=== PATIENT | female | born 1960 | race Caucasian/White ===

== ENCOUNTER 2017-03-22 17:33 | Emergency (ER) | payer OTHER ==
[~2017-03-22] VITALS: Ht 147.3 cm; Wt 94.1 kg
[~2017-03-22 17:33] MED LIST: ASPI81TA21 PO; CARV12.52 PO; HYDR12.56 PO; IBUP-103 PO; LISI40TA PO; SIMV40TA4 PO
[2017-03-22 17:38] VITALS: TEMP 36.7; Ht 147.3 cm; Wt 94.1 kg
--- NOTE | 2017-03-22 18:22 | EMERGENCY ROOM VISIT NOTE ---
ED Visit Note First contact with patient: 18:02 CHIEF COMPLAINT: Left hand Burn HISTORY OF PRESENT ILLNESS: This 57-year-old female patient presents to the emergency department after they sustained a burn injury to the dorsal aspect of the left hand. This occurred at work almost 2-1/2 hours ago. The patient complains of swelling and pain over the dorsal aspect of the left hand rated as 7/10. Pain is worse with movement and pressure. Sensation is still present. There is no blistering. No other injury sustained. Tetanus shot is up to date. The patient states that several months but at hand of hot grease up above her work station and when she moved it the grease splashed on the dorsal aspect of her left hand REVIEW OF SYSTEMS: A 6 system review of systems was completed with positives and pertinent negatives listed in the HPI. ALLERGIES: Penicillins, tramadol MEDICATIONS: Aspirin, Zocor, Coreg, lisinopril, hydrochlorothiazide PMH: Hypertension, hyperlipidemia SOCIAL HISTORY: The patient does not smoke. She is employed at [employer] PHYSICAL EXAM: Vital Signs reviewed, see Nurse's notes, vital signs stable. GENERAL: This is a 57-year-old female, awake, alert, well appearing, no acute distress HEENT: Normocephalic, atraumatic. No carbonaceous sputum or singed nasal hair. Oropharynx without edema or erythema. NECK: No stridor LUNGS: Clear to ausculation. No wheezes or rales. CARDIAC: Regular rate, normal rhythm MUSCULOSKELETAL: No gross deformity. SKIN: There is a partial thickness burn to the dorsal aspect of the left hand and is less than 0.5 % BSA. The burn is 9 circumferential. No signs of infection or foreign body. There is no blistering or skin sloughing. NEURO: No sensory or motor deficits noted over all dermatomes and myotomes tested. EMERGENCY DEPARTMENT COURSE AND DECISION MAKING: I examined the patient. The patient presented with an isolated first-degree burn as above. No signs of airway involvement or smoke inhalation. There is no critical body part involvement or burn severity to warrant burn center referral. ER Treatment: The wound was cleaned and dressed with bacitracin and nonstick dressing. She should follow-up with an employer proved Worker's Compensation doctor on Saturday She should return with worsening symptoms She declined pain medication. Discharge instructions reviewed. The patient was discharged home in stable condition. Problem List Medical Problems: (1) Coronary artery disease Permanent Comment: Moderate nonocclusive coronary disease per cath 2009 Status: Chronic (2) Dyslipidemia Status: Chronic (3) History of colonic polyps Status: Chronic (4) Hypertension Status: Chronic Surgical Problems: (1) Status post cardiac catheterization Status: Chronic Current/Historical Medications Scheduled Aspirin Enteric Coated (Ecotrin Or Generic), 81 MG PO QAM Carvedilol (Coreg), 12.5 MG PO BID Hydrochlorothiazide (Hctz), 12.5 MG PO DAILY Lisinopril (Prinivil), 40 MG PO DAILY Simvastatin (Zocor), 40 MG PO QAM Miscellaneous Medications Ibuprofen Tab (Advil), 400 MG PO Allergies Coded Allergies: Amoxicillin (Unverified Allergy, Severe, SHORTNESS OF BREATH, 08/01/16) Tramadol (Verified Allergy, Intermediate, SWEATY, CLAMMY, 08/01/16) Penicillins (Verified Allergy, Unknown, unknown, 08/01/16) Vital Signs Date Time Temp Pulse Resp B/P Pulse Ox O2 Delivery O2 Flow Rate FiO2 03/22/17 18:30 64 20 160/86 96 03/22/17 18:29 69 18 160/86 93 Room Air 03/22/17 17:38 36.7 70 18 164/87 94 Room Air Departure Information Impression Primary Impression: First degree burn of hand Additional Impression: Work related injury Dispostion Home / Self-Care Condition GOOD Referrals Imelda Zaomra M.D. (MEDICAL) (PCP) Forms HOME CARE DOCUMENTATION FORM, IMPORTANT VISIT INFORMATION, Work Instructions Return To Work: 3 days Patient Instructions ED Burn D , On License Of [facility] Additional Instructions Motrin 600 mg every 6-8 hours as needed for moderate pain Keep the wound clean and dry and change the dressing 1-2 times daily or as needed Follow up with an employer approved Worker's Compensation doctor on Saturday Return if any worsening symptoms Problem Qualifiers Primary Impression: First degree burn of hand Encounter type: initial encounter Laterality: left Qualified Codes: T23.102A - Burn of first degree of left hand, unspecified site, initial encounter
[2017-03-22 18:30] VITALS: BP 160/86; PULSE 64; O2SAT 96
== END 2017-03-22 18:30 | disposition home or self-care (01) ==
LOC: C.EDB 17:34 → C.EDD 18:30
DX: T23.102A Burn of first degree of left hand, unspecified site, initial encounter (principal); X12.XXXA Contact with other hot fluids, initial encounter; Y92.89 Other specified places as the place of occurrence of the external cause; Y99.0 Civilian activity done for income or pay; I10 Essential (primary) hypertension; E78.5 Hyperlipidemia, unspecified; I25.10 Atherosclerotic heart disease of native coronary artery without angina pectoris; Z98.61 Coronary angioplasty status; Z86.010 Personal history of colon polyps; Z79.82 Long term (current) use of aspirin; Z79.899 Other long term (current) drug therapy; Z88.0 Allergy status to penicillin; Z88.1 Allergy status to other antibiotic agents; Z88.6 Allergy status to analgesic agent; Z88.8 Allergy status to other drugs, medicaments and biological substances

== ENCOUNTER 2017-10-13 17:43 | Emergency (ER) | payer OTHER ==
[~2017-10-13] VITALS: Ht 149.9 cm; Wt 94.4 kg
[2017-10-13 17:51] VITALS: TEMP 36.6; Ht 149.9 cm; Wt 94.4 kg
--- NOTE | 2017-10-13 18:33 | DIAGNOSTIC IMAGING REPORT ---
RIGHT KNEE 3 VIEWS HISTORY: R anterior knee pain COMPARISON: None. FINDINGS: There is no fracture or dislocation. Soft tissues are unremarkable. No radiopaque foreign bodies. No significant knee effusion. Vascular calcifications are noted. Mild osteoarthritis of the medial and patellofemoral compartments. IMPRESSION: No fractures. Electronically signed by: Kody Moser M.D. 10/13/2017 6:31 PM Dictated Date/Time: 10/13/2017 6:31 PM
[2017-10-13 19:32] VITALS: BP 126/85; PULSE 80; O2SAT 95
--- NOTE | 2017-10-13 23:00 | EMERGENCY ROOM VISIT NOTE ---
History First contact with patient: 17:53 Chief Complaint: KNEEPAIN Stated Complaint: KNEE PAIN History of Present Illness The patient is a 57 year old female who presents to the Emergency Room with complaints of right anterior knee pain. The patient reports that she woke up this morning with significant discomfort, and a feeling like her knee was locked up. She does report a history of right knee arthroscopy over 5 years ago , and reports a history of osteoarthritis of bilateral knees. She had a cortisone injection in her left knee approximately [address] Palacios. The patient denies any recent injury to her right knee. She walks six block to/from work, and also stands on her feet for approximately 7 hours a day. The patient currently denies any pain extending into the right leg or thigh. She also denies back pain, paresthesias or numbness of the right lower extremity. Her pain is worsened with ambulation, and rates her discomfort a 9 out of 10. She has tried using BenGay, heat/cold and ibuprofen without relief. Review of Systems 10 system review was performed and was negative except for pertinent positives and negatives as indicated in history of present illness Past Medical/Surgical History Medical Problems: (1) Coronary artery disease (2) Dyslipidemia (3) History of colonic polyps (4) Hypertension Surgical Problems: (1) Status post cardiac catheterization Family History Cancer FATHER Heart disease MOTHER Social History Smoking Status: Current Some Day Smoker Alcohol Use: none Drug Use: none Marital Status: Occupation Status: retired Current/Historical Medications Scheduled Aspirin Enteric Coated (Ecotrin Or Generic), 81 MG PO QAM Carvedilol (Coreg), 12.5 MG PO BID Hydrochlorothiazide (Hctz), 12.5 MG PO DAILY Lisinopril (Prinivil), 40 MG PO DAILY Simvastatin (Zocor), 40 MG PO QAM Scheduled PRN Ibuprofen Tab (Advil), 400 MG PO DIRECTED PRN for Pain Physical Exam Vital Signs Date Time Temp Pulse Resp B/P (MAP) Pulse Ox O2 Delivery O2 Flow Rate FiO2 10/13/17 19:32 80 18 126/85 95 10/13/17 17:51 36.6 80 20 143/82 94 Room Air Physical Exam CONSTITUTIONAL: Morbidly obese female, alert and oriented X 3 with positive affect. Patient appears in mild to moderate distress. HEENT: Normocephalic, atraumatic. Pupils equal, round and reactive. NECK: Full active range of motion without discomfort. MUSCULOSKELETAL: Examination of the right knee does not show any obvious soft tissue edema, ecchymosis, erythema, joint effusion or increased warmth to palpation. She has generalized anterior discomfort to palpation with no focal posterior or lateral or posterior medial tenderness. No popliteal masses. Ligamentous exam is normal. Range of motion worsens her discomfort. Distal pulses are intact. INTEGUMENTARY: No rash or other significant dermatologic conditions noted. NEUROLOGIC: Right lower extremity is sensory intact. Medical Decision & Procedures ER Provider Diagnostic Interpretation: My interpretation of right knee x-rays shows mild degenerative changes of the medial and patellofemoral compartment. No other fractures, dislocation or obvious joint effusion. Radiologist report is as follows: RIGHT KNEE 3 VIEWS HISTORY: R anterior knee pain COMPARISON: None. FINDINGS: There is no fracture or dislocation. Soft tissues are unremarkable. No radiopaque foreign bodies. No significant knee effusion. Vascular calcifications are noted. Mild osteoarthritis of the medial and patellofemoral compartments. IMPRESSION: No fractures. ED Course Patient history and physical exam were performed. Nurse's notes were reviewed. Vital signs were reviewed and were normal. The patient initially refused any analgesics. X-rays of the right knee shows mild medial compartment and patellofemoral degenerative changes. The patient reports that she does have crutches and a cane at home. She refused a knee immobilizer, reporting that she likely has one of those at home as well. The patient was encouraged to continue alternating ice and heat for pain. She was encouraged to alternate ibuprofen and Tylenol as needed for additional pain relief, and limits weight- bearing until symptoms improve. I did encourage her to continue follow-up with Dr. Martin who performed her last right knee arthroscopy. She was advised that she would likely need a referral from her PCP. The patient was happy with plan of care, voiced understanding of all discharge instructions, and rated her discomfort a 5 out of 10 at the conclusion of my exam. Medical Decision Medication Reconcilliation Current Medication List: was personally reviewed by me Blood Pressure Screening Patient's blood pressure: Normal blood pressure Impression Primary Impression: Right anterior knee pain Departure Information Referrals Imelda Zamora M.D. (MEDICAL) (PCP) Patient Instructions My [facility]
== END 2017-10-13 19:32 | disposition home or self-care (01) ==
LOC: C.EDB 17:44 → C.EDD 19:32
DX: M25.561 Pain in right knee (principal); M17.0 Bilateral primary osteoarthritis of knee; I25.10 Atherosclerotic heart disease of native coronary artery without angina pectoris; E78.5 Hyperlipidemia, unspecified; I10 Essential (primary) hypertension; Z86.010 Personal history of colon polyps; Z80.9 Family history of malignant neoplasm, unspecified; Z82.49 Family history of ischemic heart disease and other diseases of the circulatory system; F17.210 Nicotine dependence, cigarettes, uncomplicated; Z79.899 Other long term (current) drug therapy

== ENCOUNTER 2018-04-13 14:52 | Emergency (ER) | payer OTHER ==
[~2018-04-13] VITALS: Ht 149.9 cm; Wt 96.5 kg
[~2018-04-13 14:52] MED LIST changes: -ASPI81TA21 PO; -CARV12.52 PO
[2018-04-13 15:00] VITALS: TEMP 36.7; Ht 149.9 cm; Wt 96.5 kg
[2018-04-13] MEDS ORDERED: KETOROLAC TROMETHAMINE 30 MG/ML VIAL IM STA (15:09)
--- NOTE | 2018-04-13 15:14 | EMERGENCY ROOM VISIT NOTE ---
History Report prepared by Clarence: Taj Melo Under the Supervision of: Dr. Nba Orr M.D. First contact with patient: 14:52 Chief Complaint: KNEEPAIN Stated Complaint: KNEE PAIN History of Present Illness The patient is a 58 year old female who presents to the Emergency Room with complaints of constant left knee pain that began in October. She rates her discomfort as a 9/10 in severity. The patient states she has had knee pain since October. She reports that she saw Dr. Martin, Orthopedics who performed an x-ray and found that there was "bone on bone". The patient states that she received Cortisone injections for her knee pain, which she states helped relieve her pain. She reports her pain has continued over the last few days. The patient states she has taken Ibuprofen for her symptoms without any relief. Source of History: patient Onset: October Position: knee (left) Symptom Intensity: 9/10 Timing: constant Modifying Factors (Relieving): ibuprofen, other (Cortisone injections) Review of Systems See HPI for pertinent positives and negatives. A total of ten systems were reviewed and were otherwise negative. Past Medical & Surgical Medical Problems: (1) Coronary artery disease (2) Dyslipidemia (3) History of colonic polyps (4) Hypertension Surgical Problems: (1) Status post cardiac catheterization Family History Cancer FATHER Heart disease MOTHER Social History Smoking Status: Current Every Day Smoker Alcohol Use: none Drug Use: none Marital Status: Occupation Status: retired Current/Historical Medications Scheduled Aspirin Enteric Coated (Ecotrin Or Generic), 81 MG PO QAM Carvedilol (Coreg), 12.5 MG PO BID Folic Acid (Folvite), 1 MG PO DAILY Hydrochlorothiazide (Hctz), 12.5 MG PO DAILY Lisinopril (Prinivil), 40 MG PO DAILY Methotrexate (Methotrexate), 2.5 MG PO WK Simvastatin (Zocor), 40 MG PO QAM Scheduled PRN Gabapentin (Neurontin), 1 CAP PO TID PRN for Pain Ibuprofen Tab (Advil), 400 MG PO UD PRN for Pain Allergies Coded Allergies: Amoxicillin (Verified Allergy, Severe, SHORTNESS OF BREATH, 10/13/17) Tramadol (Verified Allergy, Intermediate, SWEATY, CLAMMY, 10/13/17) Penicillins (Verified Allergy, Unknown, unknown, 10/13/17) Physical Exam Vital Signs Date Time Temp Pulse Resp B/P (MAP) Pulse Ox O2 Delivery O2 Flow Rate FiO2 04/13/18 16:16 78 20 138/80 97 04/13/18 15:00 36.7 70 20 140/81 96 Room Air Physical Exam Physical Exam GENERAL: She is oriented to person, place, and time. She appears well- developed and well-nourished. She does not appear distressed. ____ HENT: Exam performed. Head: Normocephalic and atraumatic. Right Ear: External ear normal. No mastoid tenderness. Left Ear: External ear normal. No mastoid tenderness. Mouth/Throat: The oropharynx is clear and moist. No trismus in the jaw. No dental abscesses or uvula swelling. No oropharyngeal exudate or tonsillar abscesses. ____ EYES: Conjunctivae and EOM are normal. Pupils are equal, round, and reactive to light. Right eye exhibits no discharge. Left eye exhibits no discharge. No scleral icterus. ____ NECK: Normal range of motion. Neck supple. No JVD present. No spinous process tenderness present. No carotid bruit present. No rigidity. No tracheal deviation and normal range of motion present. No Brudzinski's sign and no Kernig 's sign noted. ____ CV: Normal rate, regular rhythm, normal heart sounds and intact distal pulses. There is no peripheral edema. Palpable radial pulses bue. Palpable DP and PT pulses bilaterally. ____ PULM/CHEST: Effort normal and breath sounds normal. No respiratory distress. No stridor. She has no wheezes. She has no rales. Chest Wall: She exhibits no tenderness. ____ ABD: The abdomen is soft. Bowel sounds are normal. She has no distension. No mass is present. There is no tenderness. There is no rebound, no guarding, no Zelaya's sign and no tenderness at McBurney's point. Rovsig negative MUSC/SKEL: Normal range of motion. There is no peripheral edema, tenderness or deformity. Pain on palpation of left knee as well as left posterior thigh. No overlying erythema, edema, warmth, or effusion. LYMPH: No cervical adenopathy. ____ NEURO: She is alert and oriented to person, place, and time. She has normal strength. No cranial nerve deficit or sensory deficit. Coordination and gait normal. GCS eye subscore is 4. GCS verbal subscore is 5. GCS motor subscore is 6. Cerebellar tests wnl. ____ SKIN: Skin is warm and dry. She is not diaphoretic. ____ PSYCH: She has a normal mood and affect. Her behavior is normal. Judgment and thought content normal. ____ Medical Decision & Procedures ER Provider Diagnostic Interpretation: Radiology results as stated below per my review and radiologist interpretation: LEFT LOWER EXTREMITY VENOUS DOPPLER HISTORY: Left leg pain. COMPARISON STUDY: None. FINDINGS: There is normal compressibility, flow, and augmentation within the left lower extremity deep venous system. IMPRESSION: No DVT within the left lower extremity. Electronically signed by: Kody Moser M.D. 04/13/2018 3:50 PM Dictated Date/Time: 04/13/2018 3:50 PM LEFT KNEE 3 VIEWS HISTORY: chronic knee pain COMPARISON: None. FINDINGS: There is no fracture or dislocation. Small left knee effusion. Mild tricompartmental osteoarthritis. Vascular calcifications are noted. No radiopaque foreign bodies. IMPRESSION: 1. No fracture or dislocation within the left knee. 2. Small knee effusion. 3. Mild tricompartmental osteoarthritis. Electronically signed by: Kody Moser M.D. 04/13/2018 3:42 PM Dictated Date/Time: 04/13/2018 3:41 PM Medications Administered Medications (Trade) Dose Ordered Sig/Aydin Route Start Time Stop Time Status Last Admin Dose Admin Ketorolac Tromethamine (Toradol Inj) 15 mg NOW STAT IM 04/13/18 15:09 04/13/18 15:10 DC 04/13/18 15:17 15 MG ED Course 1504: The patient was evaluated in room B06. A complete history and physical exam was performed. 1509: Ordered Toradol Injection 15 mg IM. 1557: I discussed the patients case with Dr. Davidson, [facility]. He agrees the patient should be discharged and follow up with Dr. Martin. 1805: I reevaluated the patient. Her vital signs are stable. Her imaging is wnl. She states she cannot take Tylenol at home due to adverse reactions. She states Ibuprofen and Motrin have not been helping. She will be discharged with a prescription of Gabapentin and will follow up with orthopedics. DISCHARGE - Plan of care discussed with patient and questions answered. The patient was given both verbal and printed discharge instructions. The patient verbalized understanding and ability to comply. The patient is to seek outpatient follow up as noted in the discharge instructions. The patient verbalized understanding and ability to comply. The patient is discharged in stable condition. The patient was instructed to return for worsening symptoms. Medical Decision vital signs are stable. Her imaging is wnl. She states she cannot take Tylenol at home due to adverse reactions. She states Ibuprofen and Motrin have not been helping. She will be discharged with a prescription of Gabapentin and will follow up with orthopedics. DISCHARGE - Plan of care discussed with patient and questions answered. The patient was given both verbal and printed discharge instructions. The patient verbalized understanding and ability to comply. The patient is to seek outpatient follow up as noted in the discharge instructions. The patient verbalized understanding and ability to comply. The patient is discharged in stable condition. The patient was instructed to return for worsening symptoms. Medication Reconcilliation Current Medication List: was personally reviewed by me Blood Pressure Screening Patient's blood pressure: Elevated blood pressure Blood pressure disposition: Referred to PCP Consults Time Called: 2027 Consulting Physician: Dr. Davidson, [facility] Returned Call: [phone] I discussed the patients case with Dr. Davidson, [facility]. He agrees the patient should be discharged and follow up with Dr. Martin. Impression Primary Impression: Knee pain Scribe Attestation The scribe's documentation has been prepared under my direction and personally reviewed by me in its entirety. I confirm that the note above accurately reflects all work, treatment, procedures, and medical decision making performed by me. The chart was completed utilizing [employer] Speech voice recognition software. Grammatical errors, random word insertions, pronoun errors, and incomplete sentences are an occasional consequence of this system due to software limitations, ambient noise, and hardware issues. Any formal questions or concerns about the content, text, or information contained within the body of this dictation should be directly addressed to the physician for clarification. Departure Information Dispostion Home / Self-Care Prescriptions Gabapentin (Neurontin) 100 Mg Cap 1 CAP PO TID Y for Pain for 30 Days, #30 CAP 0 Refills Prov: Kirby, Nba ., M.D. 04/13/18 Referrals Imelda Zamora M.D. (MEDICAL) (PCP) Francesco Martin D.O. Forms HOME CARE DOCUMENTATION FORM, IMPORTANT VISIT INFORMATION Patient Instructions My [facility], Oste[facility] Additional Instructions Return to the emergency department if you develop increasing pain in her knee, swelling of any, redness around the injection site where your orthopedist injected cortisone, fevers, chills, or your symptoms worsen. Problem Qualifiers Primary Impression: Knee pain Chronicity: chronic Laterality: left Qualified Codes: M25.562 - Pain in left knee; G89.29 - Other chronic pain
--- NOTE | 2018-04-13 15:43 | DIAGNOSTIC IMAGING REPORT ---
LEFT KNEE 3 VIEWS HISTORY: chronic knee pain COMPARISON: None. FINDINGS: There is no fracture or dislocation. Small left knee effusion. Mild tricompartmental osteoarthritis. Vascular calcifications are noted. No radiopaque foreign bodies. IMPRESSION: 1. No fracture or dislocation within the left knee. 2. Small knee effusion. 3. Mild tricompartmental osteoarthritis. Electronically signed by: Kody Moser M.D. 04/13/2018 3:42 PM Dictated Date/Time: 04/13/2018 3:41 PM
[2018-04-13] MEDS ORDERED: ASPI-319 PO (15:50)
[2018-04-13] MEDS ORDERED: FOLI1TAB8 PO (15:51)
[2018-04-13] MEDS ORDERED: METH2.5T PO (15:51)
--- NOTE | 2018-04-13 15:52 | DIAGNOSTIC IMAGING REPORT ---
LEFT LOWER EXTREMITY VENOUS DOPPLER HISTORY: Left leg pain. COMPARISON STUDY: None. FINDINGS: There is normal compressibility, flow, and augmentation within the left lower extremity deep venous system. IMPRESSION: No DVT within the left lower extremity. Electronically signed by: Kody Moser M.D. 04/13/2018 3:50 PM Dictated Date/Time: 04/13/2018 3:50 PM
[2018-04-13] MEDS ORDERED: NRN/100 PO (16:08)
[2018-04-13 16:16] VITALS: BP 138/80; PULSE 78; O2SAT 97
[2018-04-13] MEDS ORDERED: CARV12.52 PO (23:13)
== END 2018-04-13 16:18 | disposition home or self-care (01) ==
LOC: EDBD 14:52 → C.EDB 14:53
DX: M25.562 Pain in left knee (principal); G89.29 Other chronic pain; I25.10 Atherosclerotic heart disease of native coronary artery without angina pectoris; E78.5 Hyperlipidemia, unspecified; I10 Essential (primary) hypertension; Z86.010 Personal history of colon polyps; F17.210 Nicotine dependence, cigarettes, uncomplicated; Z80.9 Family history of malignant neoplasm, unspecified; Z79.82 Long term (current) use of aspirin; Z79.899 Other long term (current) drug therapy; Z88.0 Allergy status to penicillin; Z88.8 Allergy status to other drugs, medicaments and biological substances

== ENCOUNTER 2024-04-16 15:31 | Inpatient (IN) ==
--- NOTE | 2024-04-16 15:48 | Emergency Department Note ---
Impression & Plan Acute dyspnea, Acute hypoxemic respiratory failure ED Provider Note HISTORY OF PRESENT ILLNESS: Patient is a 64-year-old female presenting with shortness of breath and cough. Patient reports she lost her taste and smell about 3 weeks ago. States that today while mopping her floor at home she developed acute onset of significant shortness of breath. Reports that she just finished a course of steroids 5 days ago for a "arthritis flare." She states that she normally wears 2 L nasal cannula at nighttime only. She denies any DVT or PE history. She is not on any anticoagulation. Reports that she had a nonproductive cough today and has been very wheezy. Reports she feels like she cannot catch her breath. On EMS arrival, the patient was reportedly having saturations of 85% on room air. She started on 15 L nonrebreather with improvement in her saturations. Patient denies any chest pain. She reports her chest just feels very tight because she cannot breathe. ROS: as above PHYSICAL EXAM: Constitutional: Patient appears in no acute distress. Appears older than stated age HENT: Head: Normocephalic and atraumatic. Eyes: EOMI, PERRL Mouth/Throat: Mucous membranes moist. Neck: Trachea midline. Neck supple. Cardiovascular: RRR, No murmurs, rubs or gallops. Intact distal pulses. Pulmonary/Chest: No respiratory distress. Breath sounds clear and equal bilaterally. Expiratory wheezes bilaterally. Conversationally dyspneic. Tachypneic. Abdominal: Abdomen soft, no tenderness, rebound or guarding. Musculoskeletal: No edema, tenderness or deformity noted. Skin: Warm and dry. No rash, erythema, pallor or cyanosis Psychiatric: Appropriate mood and affect for situation. Neurological: Alert and keenly responsive. CN II-XII grossly intact, moving all extremities equally and fully. MDM: - Vitals signs showed tachypneic. - History obtained via patient. History as above. - Chronic conditions affecting care: lung cancer (s/p chemo and radiation therapy) - Differential diagnoses include, but are not limited to: Congestive heart failure; acute coronary syndrome; COPD/asthma exacerbation; pulmonary edema; pulmonary embolism; pneumonia; pneumothorax; viral syndrome - Order placed for continuous cardiac monitoring. At this time, monitor showed rate of 86 bpm with normal sinus rhythm, per my interpretation. - External medical records reviewed. Radiation oncology visit note dated 12/20/2023 was reviewed. Patient was followed in their clinic for her lung cancer. She completed course of radiation and chemotherapy in . - EKG interpreted by myself showed normal sinus rhythm. Rate 81 bpm. QT 418. No acute ischemic changes - Laboratory workup interpreted by myself showed normal WBC; slight hyponatremia (Na 135); normal troponin; normal BNP; normal lactate - CXR showed some mild pulmonary edema, per my interpretation. - VBG within normal limits - UA negative for infection - Viral respiratory panel negative - Patient given 125 mg IV solumedrol. Given 100 mg PO doxycycline - Patient was weaned down to 4L NC and saturations 91-93%. When we attempt to wean off oxygen, patient desaturates. - Discussion was had with manager of case management about patient's case and need for admission - Hospitalist consulted for admission - [facility] ASSESSMENT AND PLAN: Diagnosis: acute dyspnea; acute hypoxic respiratory failure Plan: admit Past Med/Surg History Problem List (Updated 04/16/24 @ 18:40 by Aimee Bolivar PA-C) (HFpEF) heart failure with preserved ejection fraction Strain of left groin (Acute) History of colon polyps Screening for colon cancer Hypotension Encounter for pre-operative examination Cataracts, bilateral Discharge planning issues DVT prophylaxis Knee effusion Intractable pain Acute pain of left knee Ambulatory dysfunction Left medial knee pain Lung cancer (Chronic) dx November 2022 - treated with chemotherapy and radiation through December and January 2023. f/u PET scan to be done November 2023 at [facility] Medical History Osteoarthritis Asthma uses rescue inhalers daily prn. Lung cancer dx November 2022 - treated with chemotherapy and radiation through December and January 2023. f/u PET scan to be done November 2023 at [facility] Lung nodules right (under surveillance; [facility]) Anxiety COPD (chronic obstructive pulmonary disease) AMRIK (obstructive sleep apnea) CPAP w/ 2lpm of oxygen Rheumatoid arthritis Dyslipidemia Hypertension Coronary artery disease "Moderate nonocclusive coronary disease per cath 2009" Surgical History History of bronchoscopy H/O left cataract extraction History of right cataract surgery Hx of foot surgery RIGHT - HEEL SPUR Hx of colonoscopy Hx of arthroscopic knee surgery RIGHT with ligament and tendon repair. History of carpal tunnel surgery of left wrist LEFT S/P trigger finger release Status post cardiac catheterization HX OF 2010 - [facility] - NO STENTS Family History Father FHx: cancer Grandfather (Paternal) FHx: cancer Other FHx: heart disease Kidney disease No family history of adverse response to anesthesia Social History Smoking Status: Current every day smoker Tobacco Type: Cigarettes Age Started Using Tobacco: 15; packs per day: 2; Second Hand Exposure: Yes (EXPOSURE AT WORK BREAKS); Do You Dip or Chew Tobacco: No; Hx Alcohol Use: No Hx Substance Use: No Preferred Language: Burundian Communication Ability: Effective Communication Ability Comment: FINE PRINT USING MAGNIFYING GLASS Visual Impairment: No Limitations Hearing Ability: Normal Qc Scientist Required: No Beliefs That Will Affect Care: None marital status: Single Current Living Situation: Alone current occupational status: retired current occupation: [employer] Safe at Home: Yes Assistive Devices: Cane, CPAP, Glasses and Oxygen - at Night Allergies Allergies Allergy/AdvReac Type Severity Reaction Status Date / Time amoxicillin Allergy Unknown SHORTNESS Verified 04/02/24 05:47 OF BREATH, DIZZINESS Penicillins Allergy Unknown SHORTNESS Verified 04/02/24 05:47 OF BREATH, DIZZINESS prednisone Allergy Unknown "LOSE Verified 04/02/24 05:47 BRAIN FUNCTION" tramadol AdvReac Unknown SWEATY, Verified 04/02/24 05:47 CLAMMY Home Meds Home Medications Medication Instructions Recorded Confirmed atorvastatin 40 mg tablet 40 mg PO QAM 11/15/18 04/16/24 carvedilol 12.5 mg tablet (Coreg) 12.5 mg PO BID 11/15/18 04/16/24 folic acid 1 mg tablet 1 mg PO QAM 11/15/18 04/16/24 lisinopril 40 mg tablet 20 mg PO BID 12/08/18 04/16/24 trazodone 50 mg tablet 150 mg PO HS 01/09/20 04/16/24 albuterol sulfate 90 mcg/actuation 2 inh inhalation Q6H PRN Shortness 12/17/20 04/16/24 breath activated powder inhaler Of Breath Or Wheezing aspirin 81 mg tablet,delayed 81 mg PO QAM 04/12/21 04/16/24 release escitalopram oxalate 10 mg tablet 30 mg PO QAM 04/12/21 04/16/24 ibuprofen 200 mg tablet (Advil) 600 mg PO Q6H PRN Pain 04/12/21 04/16/24 albuterol sulfate 2.5 mg/3 mL 2.5 mg inhalation Q4H PRN sob 12/11/22 04/16/24 (0.083 %) solution for nebulization hydroxychloroquine 200 mg tablet 400 mg PO HS 12/11/22 04/16/24 hydroxyzine HCl 25 mg tablet 25 mg PO UD PRN Itching 12/11/22 04/16/24 ketoconazole 2 % shampoo 1 applic topical UD 12/11/22 04/16/24 amlodipine 2.5 mg tablet 2.5 mg PO QAM 02/11/23 04/16/24 furosemide 40 mg tablet 40 mg PO UD 05/01/23 04/16/24 methotrexate sodium 2.5 mg tablet 20 mg PO WK 05/01/23 04/16/24 nystatin 100,000 unit/gram topical 1 applic topical BID PRN Rash 05/01/23 04/16/24 powder spironolactone 25 mg tablet 12.5 mg PO UD 05/01/23 04/16/24 gabapentin 300 mg capsule 300 mg PO HS 10/14/23 04/16/24 ipratropium bromide 21 mcg (0.03 2 spray intranasal TID 04/16/24 04/16/24 %) nasal spray tiotropium 2.5 mcg-olodaterol 2.5 2 puff inhalation QA 04/16/24 04/16/24 mcg/actuation mist for inhalation (Stiolto Respimat) Results & Data (ED) Vital Signs Vital Signs - 24 hr 04/16/24 15:39 04/16/24 15:39 04/16/24 15:39 Temperature 37 C Temperature Source Oral Pulse Rate 80 Pulse Rate [Apical] Respiratory Rate 25 H Respiratory Effort / Characteristics Spontaneous Labored Respiratory Depth Normal Respiratory Pattern Tachypnea Blood Pressure 140/92 Blood Pressure [Left Arm] Blood Pressure Mean 108 Blood Pressure Mean [Left Arm] Pulse Oximetry 97 Oxygen Delivery Method Non-rebreather Non-rebreather Oxygen Flow Rate 15 Sepsis Recent Fever Within 48 Hours No Sepsis New/Unexplained Change in Mental Status No Sepsis Action Taken by Nursing No Action Required 04/16/24 15:39 04/16/24 15:46 04/16/24 16:05 Temperature Temperature Source Oral Pulse Rate 76 Pulse Rate [Apical] Respiratory Rate Respiratory Effort / Characteristics Respiratory Depth Respiratory Pattern Blood Pressure Blood Pressure [Left Arm] Blood Pressure Mean Blood Pressure Mean [Left Arm] Pulse Oximetry 97 Oxygen Delivery Method Non-rebreather Oxygen Flow Rate Sepsis Recent Fever Within 48 Hours Sepsis New/Unexplained Change in Mental Status Sepsis Action Taken by Nursing 04/16/24 16:39 04/16/24 17:30 Temperature Temperature Source Pulse Rate Pulse Rate [Apical] 77 85 Respiratory Rate 26 H 28 H Respiratory Effort / Characteristics Respiratory Depth Respiratory Pattern Blood Pressure Blood Pressure [Left Arm] 131/83 131/77 Blood Pressure Mean Blood Pressure Mean [Left Arm] 99 95 Pulse Oximetry 96 91 Oxygen Delivery Method Aerosol Mask Nasal Cannula Oxygen Flow Rate 9 4 Sepsis Recent Fever Within 48 Hours Sepsis New/Unexplained Change in Mental Status Sepsis Action Taken by Nursing Laboratory Data 04/16/24 15:39 04/16/24 15:39 Lab Results 04/16/24 04/16/24 04/16/24 Range/Units 15:34 15:39 16:45 WBC 9.30 (4.8-10.8) K/ul RBC 4.36 (4.20-5.40) M/uL Hgb 13.3 (12.0-16.0) g/dl Hct 40.6 (37.0-47.0) % MCV 93.1 (80.0-100.0) fL MCH 30.5 (25.0-34.0) pg MCHC 32.8 (32.0-36.0) g/dL RDW Std Deviation 54.5 H (36.4-46.3) fL RDW Coeff of Lucretia 16.1 H (11.5-14.5) % Plt Count 204 (130-400) K/uL MPV 10.7 (9.4-12.4) fL Immature Gran % (Auto) 0.3 % Neut % (Auto) 82.2 % Lymph % (Auto) 11.7 % [place] % (Auto) 4.2 % Eos % (Auto) 1.4 % Baso % (Auto) 0.2 % Neut # (Auto) 7.64 H (1.40-6.50) K/uL Lymph # (Auto) 1.09 L (1.20-3.40) K/uL [place] # (Auto) 0.39 (0.11-0.59) K/uL Eos # (Auto) 0.13 (0.00-0.50) K/uL Baso # (Auto) 0.02 (0.00-0.20) K/uL Immature Gran # (Auto) 0.03 (0.01-0.20) K/uL VBG pH 7.38 (7.36-7.41) VBG pCO2 44 (38-50) mmHg VBG pO2 51 mmHg VBG HCO3 26 mmol/L VBG O2 Saturation 86.4 % VBG Base Excess 0.5 mEq/L Sodium 135 L (136-145) mmol/L Potassium 3.8 (3.5-5.1) mmol/L Chloride 103 (98-107) mmol/L Carbon Dioxide 26 (21-32) mmol/L Anion Gap 6 (3-11) BUN 9 (6-23) mg/dl Creatinine 0.47 L (0.6-1.2) mg/dl Est Cr Clr Drug Dosing 110.8 ml/min Est GFR ( Amer) 120.1 ml/min Est GFR (Non-Af Amer) 103.7 ml/min BUN/Creatinine Ratio 19.1 (10-20) Glucose 111 H (70-99(Fasting)) mg/dl Lactate 0.7 (0.4-2.0) mmol/L Calcium 9.6 (8.6-10.3) mg/dl Magnesium 1.9 (1.7-2.4) mg/dl Total Bilirubin 0.7 (0.2-1.0) mg/dl Direct Bilirubin 0.1 (0-0.2) mg/dl AST 17 (13-39) U/L ALT 27 (7-52) U/L Alkaline Phosphatase 109 H (34-104) U/L Troponin I High Sens 7.5 (0-14) pg/ml B-Natriuretic Peptide 47 (0-100) pg/ml Total Protein 7.3 (6.0-8.3) gm/dl Albumin 4.4 (3.4-5.0) gm/dl Procalcitonin < 0.02 (0-0.5) ng/ml Urine Color Yellow Urine Appearance Clear (Clear) Urine pH 7.5 (4.5-7.5) Ur Specific [place] 1.006 (1.000-1.030) Urine Protein Negative (Negative) Urine Glucose (UA) Negative (Negative) Urine Ketones Negative (Negative) Urine Blood Negative (Negative) Urine Nitrite Negative (Negative) Urine Bilirubin Negative (Negative) Urine Urobilinogen Negative (Negative) Ur Leukocyte Esterase Negative (Negative) Adenovirus (PCR) Not Detected (NotDetected) B. pertussis DNA (PCR) Not Detected (NotDetected) B.parapertussis DNA PCR Not Detected (NotDetected) C. pneumoniae DNA (PCR) Not Detected (NotDetected) Coronavirus OC43 (PCR) Not Detected (NotDetected) Coronavirus HKU1 (PCR) Not Detected (NotDetected) Coronavirus 229E (PCR) Not Detected (NotDetected) SARS-CoV-2 (PCR) Not Detected (NotDetected) Coronavirus NL63 (PCR) Not Detected (NotDetected) Human Metapneumovir PCR Not Detected (NotDetected) Influenza Type A (PCR) Not Detected (NotDetected) Influenza Type B (PCR) Not Detected (NotDetected) M. pneumoniae (PCR) Not Detected (NotDetected) Parainfluenza 1 (PCR) Not Detected (NotDetected) Parainfluenza 2 (PCR) Not Detected (NotDetected) Parainfluenza 3 (PCR) Not Detected (NotDetected) Parainfluenza 4 (PCR) Not Detected (NotDetected) RSV (PCR) Not Detected (NotDetected) Entero/Rhino (PCR) Not Detected (NotDetected) Administered Medications Discontinued Medications Albuterol (Albut/Ipratrop 3mg/0.5mg Neb 3 Ml Vial) 12 ml NEB ONE ONE; Protocol Stop: 04/16/24 15:46 Last Admin: 04/16/24 15:50 Dose: 12 ml Documented By: BCN Doxycycline Hyclate (Doxycycline Hyclate 100 Mg Cap) 100 mg PO NOW STA Stop: 04/16/24 18:21 Last Admin: 04/16/24 18:27 Dose: 100 mg Documented By: ANALILIA Methylprednisolone (Methylprednisolone 125 Mg/2 Ml Vial) 125 mg IV NOW STA Stop: 04/16/24 15:46 Last Admin: 04/16/24 15:50 Dose: 125 mg Documented By: BCRush Imaging Data Radiologist's Impression: Chest X-Ray 04/16/24 15:44 XR chest 1V portable HISTORY: 64 years-old Female Sepsis COMPARISON: 08/06/2023 TECHNIQUE: AP view the chest FINDINGS: Cardiac silhouette is enlarged. Pulmonary vascular congestion. Patchy bibasilar consolidative densities. No pneumothorax or large pleural effusion. Bones appear grossly intact. IMPRESSION: 1. Cardiomegaly with suggestion of mild pulmonary edema. 2. Mild nonspecific bibasilar opacities may represent atelectasis versus pneumonia. ACT 112: Negative or not required by law. The above report was generated using voice recognition software. It may contain grammatical, syntax or spelling errors. Electronically signed by: Srikanth Ball M.D. 04/16/2024 4:03 PM Discharge Plan Visit Data Chief Complaint: Shortness of Breath/Dyspnea ED Provider: Carola Pruitt Discharge Problem: Acute dyspnea, Acute hypoxemic respiratory failure Forms Stand Alone Forms: My [facility] [place] [employer] Prescriptions Prescriptions: No Action ketoconazole 2 % shampoo 1 applic topical UD Patient Comments: apply to skin of leg before shower, use as body wash three times weekly until rash is gone, then once a week thereafter Rx Instructions: no record with pharmacy 1 applic topically; albuterol sulfate 2.5 mg /3 mL (0.083 %) solution for nebulization 2.5 mg inhalation Q4H PRN (Reason: sob) Patient Comments: use every 4-6 hours as needed for shortness of breath or wheezing Rx Instructions: last filled in 2021 hydroxyzine HCl 25 mg tablet 25 mg PO UD PRN (Reason: Itching) Rx Instructions: no record with pharmacy 04/16/24 25 mg po tid prn hydroxychloroquine 200 mg tablet 400 mg PO HS amlodipine 2.5 mg tablet 2.5 mg PO QAM Patient Comments: has not been taking lisinopril 40 mg Tablet 20 mg PO BID Rx Instructions: TAKES AT BREAKFAST AND DINNER albuterol sulfate 90 mcg/actuation Aerosol Powdr Breath Activated 2 inh INHALATION Q6H PRN (Reason: Shortness Of Breath Or Wheezing) atorvastatin 40 mg Tablet 40 mg PO QAM carvedilol [Coreg] 12.5 mg Tablet 12.5 mg PO BID Rx Instructions: TAKES AT BREAKFAST AND DINNER folic acid 1 mg Tablet 1 mg PO QAM trazodone 50 mg tablet 150 mg PO HS Rx Instructions: 1 to 3 tab furosemide 40 mg Tablet 40 mg PO UD Rx Instructions: last filled over a year ago 04/16/24 40 mg po qam spironolactone 25 mg Tablet 12.5 mg PO UD Rx Instructions: over a year ago 04/16/24 12.5 mg po qam methotrexate sodium 2.5 mg Tablet 20 mg PO WK nystatin 100,000 unit/gram powder 1 applic topical BID PRN (Reason: Rash) Rx Instructions: filledover a year ago 1 angelina top bid prn aspirin 81 mg Tablet,Delayed Release (Dr/Ec) 81 mg PO QAM Rx Instructions: otc unable to verify escitalopram oxalate 10 mg Tablet 30 mg PO QAM ibuprofen [Advil] 200 mg Tablet 600 mg PO Q6H PRN (Reason: Pain) Rx Instructions: otc unable to verify gabapentin 300 mg Capsule 300 mg PO HS ipratropium bromide 21 mcg (0.03 %) spray,non-aerosol 2 spray INTRANASAL TID Stiolto Respimat 2.5-2.5 mcg/actuation mist 2 puff INHALATION QAM Referrals Referrals: Cristopher Woody MD [Primary Care Provider] -
[2024-04-16] MEDS: methylPREDNISolone 125 MG/2 ML VIAL IV STA (15:50)
[2024-04-16] MEDS: ALBUT/IPRATROP 3MG/0.5MG NEB 3 ML VIAL NEB ONE (15:50)
[2024-04-16 15:59] LABS: Base Excess VBG 0.5 mEq/L; HCO3 VBG 26 mmol/L; Oxygen Saturation VBG 86.4 %; PCO2 VBG 44 mmHg (38-50); PO2 VBG 51 mmHg; pH VBG 7.38 (7.36-7.41)
[2024-04-16 16:05] LABS: Basophils # (auto) 0.02 K/uL (0.00-0.20); Basophils % (auto) 0.2 %; Eosinophils # (auto) 0.13 K/uL (0.00-0.50); Eosinophils % (auto) 1.4 %; Hematocrit (blood only) 40.6 % (37.0-47.0); Hemoglobin 13.3 g/dl (12.0-16.0); Immature Granulocytes # (auto) 0.03 K/uL (0.01-0.20); Immature Granulocytes % (auto) 0.3 %; Lymphocytes # (auto) 1.09 K/uL (1.20-3.40); Lymphocytes % (auto) 11.7 %; Mean Corpuscular Hemoglobin 30.5 pg (25.0-34.0); Mean Corpuscular Hgb Conc 32.8 g/dL (32.0-36.0); Mean Corpuscular Volume 93.1 fL (80.0-100.0); Mean Platelet Volume 10.7 fL (9.4-12.4); Monocytes # (auto) 0.39 K/uL (0.11-0.59); Monocytes % (auto) 4.2 %; Neutrophils # (auto) 7.64 K/uL (1.40-6.50); Neutrophils % (auto) 82.2 %; Platelet Count 204 K/uL (130-400); RDW Coefficient of Variation 16.1 % (11.5-14.5); RDW Standard Deviation 54.5 fL (36.4-46.3); Red Blood Count 4.36 M/uL (4.20-5.40)
--- NOTE | 2024-04-16 16:05 | XRay Report ---
XR chest 1V portable HISTORY: 64 years-old Female Sepsis COMPARISON: 08/06/2023 TECHNIQUE: AP view the chest FINDINGS: Cardiac silhouette is enlarged. Pulmonary vascular congestion. Patchy bibasilar consolidative densiti es. No pneumothorax or large pleural effusion. Bones appear grossly intact. IMPRESSION: 1. Cardiomegaly with suggestion of mild pulmonary edema. 2. Mild nonspecific bibasilar opacities may represent atelectasis versus pneumonia. ACT 112: Negative or not required by law. The above report was generated using voice recognition software. It may contain grammatical, syntax o r spelling errors. Electronically signed by: Srikanth Ball M.D. 04/16/2024 4:03 PM
[2024-04-16 16:23] LABS: Albumin Level 4.4 gm/dl (3.4-5.0); BUN Creatinine Ratio 19.1 (10-20); Bilirubin Direct 0.1 mg/dl (0-0.2); Bilirubin,Total 0.7 mg/dl (0.2-1.0); Calcium 9.6 mg/dl (8.6-10.3); Creatinine Clr Calc Pharmacy 110.8 ml/min; Est GFR (African American) 120.1 ml/min; Est GFR (Non-African American) 103.7 ml/min; Magnesium 1.9 mg/dl (1.7-2.4); Potassium 3.8 mmol/L (3.5-5.1); Total Protein 7.3 gm/dl (6.0-8.3)
[2024-04-16 16:29] LABS: Troponin I High Sensitivity 7.5 pg/ml (0-14)
[2024-04-16 17:01] LABS: Adenovirus PCR Not Detected (NotDetected); Bordetella parapertussis PCR Not Detected (NotDetected); Bordetella pertussis PCR Not Detected (NotDetected); Chlamydia pneumoniae PCR Not Detected (NotDetected); Coronavirus 229E PCR Not Detected (NotDetected); Coronavirus CoV-2 (COVID19)PCR Not Detected (NotDetected); Coronavirus HKU1 PCR Not Detected (NotDetected); Coronavirus NL63 PCR Not Detected (NotDetected); Coronavirus OC43PCR Not Detected (NotDetected); Human Metapneumovirus PCR Not Detected (NotDetected); Influenza A PCR Not Detected (NotDetected); Influenza B PCR Not Detected (NotDetected); Mycoplasma pneumoniae PCR Not Detected (NotDetected); Parainfluenza Virus 1 PCR Not Detected (NotDetected); Parainfluenza Virus 2 PCR Not Detected (NotDetected); Parainfluenza Virus 3 PCR Not Detected (NotDetected); Parainfluenza Virus 4 PCR Not Detected (NotDetected); Respiratory Syncytial VirusPCR Not Detected (NotDetected); Rhinovirus/Enterovirus PCR Not Detected (NotDetected)
[2024-04-16 17:10] LABS: Appearance Urine Clear (Clear); Bilirubin Urine Negative (Negative); Blood Urine Negative (Negative); Color Urine Yellow; Glucose Urine UA Negative (Negative); Ketones Urine Negative (Negative); Leukocyte Esterase Urine Negative (Negative); Nitrite Urine Negative (Negative); Protein Urine Negative (Negative); Specific Gravity Urine 1.006 (1.000-1.030); Urobilinogen Urine Negative (Negative); pH Urine 7.5 (4.5-7.5)
[2024-04-16] MEDS: DOXYCYCLINE HYCLATE 100 MG CAP PO STA (18:27)
--- NOTE | 2024-04-16 18:39 | History & Physical Report ---
Date of Service April 16, 2024 Assessment & Plan (1) COPD (chronic obstructive pulmonary disease): (2) AMRIK (obstructive sleep apnea): (3) Lung cancer: (4) Asthma: (5) (HFpEF) heart failure with preserved ejection fraction: (6) Coronary artery disease: (7) Rheumatoid arthritis: (8) Hypertension: (9) Dyslipidemia: Plan: Acute hypoxic respiratory failure COPD exacerbation Asthma AMRIK on Cpap Chronic supplemental O2 requirement Hx of Right Squamous Cell Carcinoma in Nov 2021, s/p chemotherapy and radiation completed in 01/2023 - Admit to tele - s/p solumedrol 125 mg IV and doxycycline IV in the ER, will continue solumedrol 40 mg IV BID, cont doxy for now - CXR with mild nonspecific bibasilar opacities possibly representing pna - Pulm toilet: flutter, incentive spirometry, mucinex, duonebs, cough syrup prn - No leukocytosis, afebrile currently - follow BCx x 2 - requiring 4 L via NC, typically is o n 2 L baseline, wears CPAP HS with 2 L bled in - Pt follow with Dr. Schneider previously for chemo/rads - pt states she is in remission. Was supposed to have PET CT few weeks ago but was unable to lay down flat due to shortness of breath. - Pt stopped smoking 5 years ago - VBC with am labs, reviewed upon admission - Aspiration precautions - HOLD trazadone tonight CHF, chronic diastolic CAD HTN HLD - Last echo reviewed in outpatient epic from Nov 2023 showing diastolic dysfunction, mitral regurg and EF of 55-59% - Lasix and spironolactone on home med list but pts states has NOT been taking since on chemo. - Give one dose lasix 20 mg IV now and assess, josiane. - Obtain repeat echo - CXR showing pulmonary vasculature as above - Cont amlodipine, aspirin, coreg, lisinopril Rheumatoid Arthritis - Continue methotrexate once weeklyon Saturday and plaquenil 400 mg HS , gabapenti n, no steroids chronically - Follows with rheum as outpt DVT ppx: teds, scds Lines: PIV x 1 DIET: diet CODE: FULL Dispo: From home, likely to remain in the hospital x 1-2 days A total of 78 minutes were spent with greater than 50% of that time face to face with the patient, personally reviewing all current laboratories, imaging studies, past medication reconciliation, outpatient chart review, and discussion with specialists to collaborate care for the patient with attending. Please see attending documentation for corrections and/or additions. History of Present Illness Chief Complaint: Shortness of Breath Primary Care Provider: Cristopher Woody MD This is a 64 yo F with PMHx of SCC of right lung s/p chemo/radiation treatment completed in 01/2023. She has followed with Dr. Norton with pulm medicine as outpatient. Other PMHx of CHF, COPD, AMRIK on cpap HS, hx of remote tobacco use, CHF with preserved EF from April 2022, obesity and rheumatoid arthritis on methotrexate and plaquenil. 3 weeks ago she had a head cold and within 1 week lost her sense of taste and smell. Pt states last week her voice got raspy and is still hoarse. Today she had significantly worsening shortness of breath at rest, and even has difficulty speaking to me at bedside. She has been using nebulizer. At baseline wears 2 L O2. Has been coughing with mucous production which is clear/white. She has chest tightness currently. Pt feels hungry and has no abd complaints. She does have lightheadedness when she gets into a coughing spell. Pt denies lightheadedness or dizziness at baseline but does feel it occasionally when she goes from sitting to standing. Pt lives at home alone. Her best friend Jo Anderson may be reached for updates at [phone]. Allergies Allergy/AdvReac Type Severity Reaction Status Date / Time amoxicillin Allergy Unknown SHORTNESS Verified 04/02/24 05:47 OF BREATH, DIZZINESS Penicillins Allergy Unknown SHORTNESS Verified 04/02/24 05:47 OF BREATH, DIZZINESS prednisone Allergy Unknown "LOSE Verified 04/02/24 05:47 BRAIN FUNCTION" tramadol AdvReac Unknown SWEATY, Verified 04/02/24 05:47 CLAMMY Home Medications Medication Instructions Recorded Confirmed Type atorvastatin 40 mg tablet 40 mg PO QAM 11/15/18 04/16/24 History carvedilol 12.5 mg tablet (Coreg) 12.5 mg PO BID 11/15/18 04/16/24 History folic acid 1 mg tablet 1 mg PO QAM 11/15/18 04/16/24 History lisinopril 40 mg tablet 20 mg PO BID 12/08/18 04/16/24 History trazodone 50 mg tablet 150 mg PO HS 01/09/20 04/16/24 History albuterol sulfate 90 mcg/actuation 2 inh inhalation Q6H PRN Shortness 12/17/20 04/16/24 History breath activated powder inhaler Of Breath Or Wheezing aspirin 81 mg tablet,delayed 81 mg PO QAM 04/12/21 04/16/24 History release escitalopram oxalate 10 mg tablet 30 mg PO QAM 04/12/21 04/16/24 History ibuprofen 200 mg tablet (Advil) 600 mg PO Q6H PRN Pain 04/12/21 04/16/24 History albuterol sulfate 2.5 mg/3 mL 2.5 mg inhalation Q4H PRN sob 12/11/22 04/16/24 History (0.083 %) solution for nebulization hydroxychloroquine 200 mg tablet 400 mg PO HS 12/11/22 04/16/24 History hydroxyzine HCl 25 mg tablet 25 mg PO UD PRN Itching 12/11/22 04/16/24 History ketoconazole 2 % shampoo 1 applic topical UD 12/11/22 04/16/24 History amlodipine 2.5 mg tablet 2.5 mg PO QAM 02/11/23 04/16/24 History methotrexate sodium 2.5 mg tablet 20 mg PO WK 05/01/23 04/16/24 History nystatin 100,000 unit/gram topical 1 applic topical BID PRN Rash 05/01/23 04/16/24 History powder gabapentin 300 mg capsule 300 mg PO HS 10/14/23 04/16/24 History ipratropium bromide 21 mcg (0.03 2 spray intranasal TID 04/16/24 04/16/24 History %) nasal spray tiotropium 2.5 mcg-olodaterol 2.5 2 puff inhalation QAM 04/16/24 04/16/24 History mcg/actuation mist for inhalation (Stiolto Respimat) Past Med/Surg History Problem List (HFpEF) heart failure with preserved ejection fraction Strain of left groin (Acute) History of colon polyps Screening for colon cancer Hypotension Encounter for pre-operative examination Cataracts, bilateral Discharge planning issues DVT prophylaxis Knee effusion Intractable pain Acute pain of left knee Ambulatory dysfunction Left medial knee pain Lung cancer (Chronic) dx November 2022 - treated with chemotherapy and radiation through December and January 2023. f/u PET scan to be done November 2023 at [facility] Medical History Osteoarthritis Asthma uses rescue inhalers daily prn. Lung nodules right (under surveillance; [facility]. Zayas [facility]) Anxiety COPD (chronic obstructive pulmonary disease) AMRIK (obstructive sleep apnea) CPAP w/ 2lpm of oxygen Rheumatoid arthritis Dyslipidemia Hypertension Coronary artery disease "Moderate nonocclusive coronary disease per cath 2009" Surgical History History of bronchoscopy H/O left cataract extraction History of right cataract surgery Hx of foot surgery RIGHT - HEEL SPUR Hx of colonoscopy Hx of arthroscopic knee surgery RIGHT with ligament and tendon repair. History of carpal tunnel surgery of left wrist LEFT S/P trigger finger release Status post cardiac catheterization HX OF 2010 - [facility] - NO STENTS Family History Father FHx: cancer Grandfather (Paternal) FHx: cancer Other FHx: heart disease Kidney disease No family history of adverse response to anesthesia Social History Smoking Status: Current every day smoker Tobacco Type: Cigarettes Age Started Using Tobacco: 15; packs per day: 2; Second Hand Exposure: Yes (EXPOSURE AT WORK BREAKS); Do You Dip or Chew Tobacco: No; Hx Alcohol Use: No Hx Substance Use: No Preferred Language: Icelandic Communication Ability: Effective Communication Ability Comment: FINE PRINT USING MAGNIFYING GLASS Visual Impairment: No Limitations Hearing Ability: Normal Java 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 Architect Required: No Beliefs That Will Affect Care: None marital status: Single Current Living Situation: Alone current occupational status: retired current occupation: [employer] Feels Safe at Home: Yes Assistive Devices: Cane, CPAP, Glasses and Oxygen - at Night Review of Systems Review of Systems: Constitutional: No fever, sweats or chills Eyes: No diplopia, no worsening or blurred vision ENT: normal hearing, no trouble swallowing Respiratory: + cough, sputum, dyspnea at rest and on exertion Cardiovascular: + chest heaviness, No chest pain, tightness or palpitations Abdomen: No pain, nausea, vomiting, diarrhea or constipation Musculoskeletal: No joint pain, calf pain, swelling Neurologic: No weakness, numbness/tingling, or balance problems Psychiatric: No anxiety or depression Skin: No rash or itch Physical Exam Physical Exam: Please refer to attending addendum Results & Data Results & Data Vital Signs (Past 12 Hours) Vital Signs Temp Pulse Pulse Resp BP BP Pulse Ox 04/16/24 17:30 85 28 H 131/77 91 04/16/24 16:39 77 26 H 131/83 96 04/16/24 16:05 76 04/16/24 15:46 97 04/16/24 15:39 04/16/24 15:39 37 C 80 25 H 140/92 97 O2 Del Method O2 Flow Rate 04/16/24 17:30 Nasal Cannula 4 04/16/24 16:39 Aerosol Mask 9 04/16/24 16:05 04/16/24 15:46 Non-rebreather 04/16/24 15:39 Non-rebreather 04/16/24 15:39 Non-rebreather 15 Laboratory Results 04/16/24 17:31 Aerobic Blood Culture - Pending Blood Anaerobic Blood Culture - Pending 04/16/24 15:39 Aerobic Blood Culture - Pending Blood Anaerobic Blood Culture - Pending 04/16/24 04/16/24 04/16/24 16:45 15:39 15:34 WBC 9.30 RBC 4.36 Hgb 13.3 Hct 40.6 MCV 93.1 MCH 30.5 MCHC 32.8 RDW Std Deviation 54.5 H RDW Coeff of Lucretia 16.1 H Plt Count 204 MPV 10.7 Immature Gran % (Auto) 0.3 Neut % (Auto) 82.2 Lymph % (Auto) 11.7 Hart % (Auto) 4.2 Eos % (Auto) 1.4 Baso % (Auto) 0.2 Neut # (Auto) 7.64 H Lymph # (Auto) 1.09 L Hart # (Auto) 0.39 Eos # (Auto) 0.13 Baso # (Auto) 0.02 Immature Gran # (Auto) 0.03 VBG pH 7.38 VBG pCO2 44 VBG pO2 51 VBG HCO3 26 VBG O2 Saturation 86.4 VBG Base Excess 0.5 Sodium 135 L Potassium 3.8 Chloride 103 Carbon Dioxide 26 Anion Gap 6 BUN 9 Creatinine 0.47 L Est Cr Clr Drug Dosing 110.8 Est GFR ( Amer) 120.1 Est GFR (Non-Af Amer) 103.7 BUN/Creatinine Ratio 19.1 Glucose 111 H Lactate 0.7 Calcium 9.6 Magnesium 1.9 Total Bilirubin 0.7 Direct Bilirubin 0.1 AST 17 ALT 27 Alkaline Phosphatase 109 H Troponin I High Sens 7.5 B-Natriuretic Peptide 47 Total Protein 7.3 Albumin 4.4 Procalcitonin < 0.02 Urine Color Yellow Urine Appearance Clear Urine pH 7.5 Ur Specific [place] 1.006 Urine Protein Negative Urine Glucose (UA) Negative Urine Ketones Negative Urine Blood Negative Urine Nitrite Negative Urine Bilirubin Negative Urine Urobilinogen Negative Ur Leukocyte Esterase Negative Adenovirus (PCR) Not Detected B. pertussis DNA (PCR) Not Detected B.parapertussis DNA PCR Not Detected C. pneumoniae DNA (PCR) Not Detected Coronavirus OC43 (PCR) Not Detected Coronavirus HKU1 (PCR) Not Detected Coronavirus 229E (PCR) Not Detected SARS-CoV-2 (PCR) Not Detected Coronavirus NL63 (PCR) Not Detected Human Metapneumovir PCR Not Detected Influenza Type A (PCR) Not Detected Influenza Type B (PCR) Not Detected M. pneumoniae (PCR) Not Detected Parainfluenza 1 (PCR) Not Detected Parainfluenza 2 (PCR) Not Detected Parainfluenza 3 (PCR) Not Detected Parainfluenza 4 (PCR) Not Detected RSV (PCR) Not Detected Entero/Rhino (PCR) Not Detected Diagnostic Findings Chest X-Ray 04/16/24 15:44 XR chest 1V portable HISTORY: 64 years-old Female Sepsis COMPARISON: 08/06/2023 TECHNIQUE: AP view the chest FINDINGS: Cardiac silhouette is enlarged. Pulmonary vascular congestion. Patchy bibasilar consolidative densities. No pneumothorax or large pleural effusion. Bones appear grossly intact. IMPRESSION: 1. Cardiomegaly with suggestion of mild pulmonary edema. 2. Mild nonspecific bibasilar opacities may represent atelectasis versus pneumonia. ACT 112: Negative or not required by law. The above report was generated using voice recognition software. It may contain grammatical, syntax or spelling errors. Electronically signed by: Srikanth Ball M.D. 04/16/2024 4:03 PM ECG Additional Comments: EKG: NSR with sinus arrhythmia, Non specific AT abnormality, QTC 485 Supervising Physician Co-Signing Physician Notes Patient is a 64-year-old female with history of squamous cell carcinoma of right lung S/P chemo and radiation therapy, AMRIK on CPAP, chronic oxygen dependency--2 L at bedtime, COPD, diastolic heart failure, former smoker, hypertension, hyperlipidemia and other medical problems presents with history of worsening shortness of breath since 3 weeks duration. Patient initially started with flulike symptoms and later developed hoarse voice. She admits to have significant shortness of breath associated with cough with yellowish expectoration. She has been using her home nebulizers more frequently. Reports associated chest tightness and intermittent dizziness with cough. While in ED, patient initially was on nonrebreather and later transition to 4 L supplemental oxygen to maintain sats. Please review HPI for complete details of presentation. I personally reviewed blood work. VBG showed no signs of hypercarbia. CBC showed no leukocytosis. Sodium 135, potassium 3.8, chloride 103, creatinine 0.47, glucose 111, calcium 9.6, lactate 0.7, procalcitonin< 0.02. Urinalysis within normal limits. BioFire negative. Chest x-ray showed findings suggestive of mild pulmonary edema, bibasilar opacities. Physical Exam: Vitals signs as noted above General Appearance: Obese, mild respiratory distress Head: normocephalic, Atraumatic Eyes: normal inspection, EOMI Neck: supple, Trachea midline Respiratory/Chest: Decreased breath sounds, scattered crackles, wheezes and rhonchi, tachypneic Cardiovascular: S1, S2, No murmur Abdomen/GI:Soft, Non tender, Bowel sounds present Extremities/Musculoskeletal:normal inspection, trace pedal edema Neurologic/Psych:AAOX3, grossly no focal neurological deficits Skin: normal color, warm Acute on chronic respiratory failure with hypoxia COPD exacerbation AMRIK, diastolic heart failure likely contributing as well H/O right squamous cell carcinoma S/P chemo and radiation therapy Mild pulmonary edema Will start on IV Solu-Medrol, nebs, doxycycline Pulmonary hygiene Continue supplemental oxygen to keep saturations 88 to 92% Consider pulmonary evaluation if needed Will update echo Given a dose of IV Lasix 20 mg Monitor volume status, consider adding diuretics as needed Aspiration precautions PT OT and 2 step prior to discharge I personally interviewed and examined at bedside. Patient's care is coordinated with Aimee Bolivar PA-C. I have reviewed the advanced practitioner's documentation, and I agree with plan of care. Please refer to the documentation above for details of patient's presentation and for discussion of other issues. I spent a total [id number] coordinating, documenting, and providing care for this patient excluding time spent in the performance of separately billed services. (3) Lung cancer Laterality: right Lung location: upper lobe of lung Qualified Code(s): C34.11 - Malignant neoplasm of upper lobe, right bronchus or lung
[2024-04-16] MEDS: FUROSEMIDE INJ 20 MG/2 ML VIAL IV ONE (21:01)
[2024-04-16] MEDS ORDERED: guaiFENesin/DEXTROM SYRUP 100MG/10MG 5ML UDC PO PRN (22:50)
[2024-04-16] MEDS ORDERED: POLYETHYLENE (MIRALAX) 17 GM PACK PO PRN (22:50)
[2024-04-16] MEDS: ALBUT/IPRATROP 3MG/0.5MG NEB 3 ML VIAL NEB SCH (23:14)
[2024-04-16] MEDS: HYDROXYCHLOROQUINE SULFATE 200 MG TAB PO SCH (23:48)
[2024-04-16] MEDS: guaiFENesin 600 MG TABCR PO SCH (23:48)
[2024-04-16] MEDS: GABAPENTIN 300 MG CAP PO SCH (23:48)
[2024-04-16] MEDS: ENOXAPARIN INJ 40 MG/0.4 ML SYR SQ SCH (23:49)
[2024-04-16] MEDS: lisinopril 20 MG TAB PO SCH (23:49)
[2024-04-16] MEDS: carvediloL 12.5 MG TAB PO SCH (23:49)
[2024-04-17] MEDS: methylPREDNISolone 40 MG in SYRINGE 0 ML IV SCH (06:25)
[2024-04-17 06:28] LABS: Base Excess VBG 1.3 mEq/L; HCO3 VBG 25 mmol/L; Oxygen Saturation VBG 92.9 %; PCO2 VBG 36 mmHg (38-50); PO2 VBG 62 mmHg; pH VBG 7.45 (7.36-7.41)
[2024-04-17 06:37] LABS: Hematocrit (blood only) 38.9 % (37.0-47.0); Mean Corpuscular Hemoglobin 30.3 pg (25.0-34.0); Mean Corpuscular Hgb Conc 33.4 g/dL (32.0-36.0); Mean Corpuscular Volume 90.7 fL (80.0-100.0); Platelet Count 242 K/uL (130-400); RDW Coefficient of Variation 15.3 % (11.5-14.5); RDW Standard Deviation 50.4 fL (36.4-46.3); Red Blood Count 4.29 M/uL (4.20-5.40); White Blood Count 12.31 K/ul (4.8-10.8)
[2024-04-17 07:05] LABS: BUN Creatinine Ratio 26.7 (10-20); Calcium 9.5 mg/dl (8.6-10.3); Creatinine Clr Calc Pharmacy 117.2 ml/min; Est GFR (African American) 121.9 ml/min; Est GFR (Non-African American) 105.1 ml/min; Magnesium 1.9 mg/dl (1.7-2.4)
--- NOTE | 2024-04-17 08:13 | Hospitalist Progress Note ---
Date of Service April 17, 2024 Assessment & Plan (1) COPD (chronic obstructive pulmonary disease): (2) AMRIK (obstructive sleep apnea): (3) Lung cancer: (4) Asthma: (5) (HFpEF) heart failure with preserved ejection fraction: (6) Coronary artery disease: (7) Rheumatoid arthritis: (8) Hypertension: (9) Dyslipidemia: Plan: Acute hypoxic respiratory failure COPD exacerbation Asthma AMRIK on Cpap Chronic supplemental O2 requirement Hx of Right Squamous Cell Carcinoma in Nov 2021, s/p chemotherapy and radiation completed in 01/2023 - s/p solumedrol 125 mg IV and doxycycline IV in the ER, continue solumedrol 40 mg IV BID, cont doxy for now - CXR with mild nonspecific bibasilar opacities possibly representing pna - Pulm toilet: flutter, incentive spirometry, mucinex, duonebs, cough syrup prn - No leukocytosis, afebrile on admission - follow BCx x 2 - requiring 4 L via NC, typically is on 2 L baseline, wears CPAP HS with 2 L bled in - Pt follows with Dr. Schneider previously for chemo/rads - pt states she is in remission. Was supposed to have PET CT few weeks ago but was unable to lay down flat due to shortness of breath. - Pt stopped smoking 5 years ago - Aspiration precautions - Hold trazadone - pt reports feeling better today- she has a significant cough, pt reports it's chronic and does not have a sputum production - on suppl. O2 CHF, chronic diastolic CAD HTN HLD - Last echo reviewed in outpatient epic from Nov 2023 showing diastolic dysfunction, mitral regurg and EF of 55-59% - Lasix and spironolactone on home med list but pts states has NOT been taking since on chemo. - CXR showing poss. pulmonary vasculature as above - received one dose lasix 20 mg IV on admission - Obtained echo-there is mild concentric LVH. LV systolic function is normal. LVEF 55 to 60%. LV wall motion is normal. LA is severely dilated. Grade 1 diastolic dysfunction, abnormal relaxation pattern. Aortic valve sclerosis moderate, without significant aortic valvular stenosis. Compared to study in November 2023, there has been no significant interval change. - Cont amlodipine, aspirin, coreg, lisinopril Rheumatoid Arthritis - Continue methotrexate once weekly on Saturday and plaquenil 400 mg HS , gabapentin, no steroids chronically - Follows with rheum as outpt DVT ppx: teds, scds CODE: FULL Dispo: From home, likely to remain in the hospital x 1-2 days Admission and Anticipated Discharge Date Admission Date: April 16, 2024 Subjective Pt seen in follow up of COPD exacerbation , hx of lung ca Currently sitting up in bed in NAD, on suppl. O2, reports feeling better and breathing easier she has chronic cough, denies any significant sputum production denies fever, chills, chest pain, shortness of breath. denies abd. pain, n/v + lack of smell and taste Review of Systems Review of Systems: All systems reviewed & are unremarkable except as noted in Subjective Physical Exam Physical Exam: General Appearance: Obese F in NAD, on suppl. O2 Head: normocephalic, Atraumatic Eyes: normal inspection, EOMI Neck: supple Respiratory/Chest: + diffuse rhonchi, no resp. distress Cardiovascular: S1, S2, No murmur Abdomen/GI: Soft, Non tender, Bowel sounds present Extremities/Musculoskeletal: normal inspection, trace pedal edema Neurologic/Psych: AAOX3, grossly no focal neurological deficits Skin: normal color, warm Results & Data Results & Data Vital Signs (Past 12 Hours) Vital Signs Temp Pulse Pulse Resp BP BP Pulse Ox 04/17/24 02:49 36.7 C 65 18 138/85 93 04/17/24 00:10 70 24 97 04/16/24 23:31 96 H 04/16/24 23:14 81 20 97 04/16/24 23:03 37.1 C 94 H 20 159/89 H 92 04/16/24 22:54 04/16/24 21:14 92 H 20 143/78 H 91 04/16/24 21:00 82 33 H 143/78 H 93 O2 Del Method O2 Flow Rate 04/17/24 02:49 Nasal Cannula 4.0 04/17/24 00:10 2 04/16/24 23:31 04/16/24 23:14 Nasal Cannula 4 04/16/24 23:03 Nasal Cannula 4 04/16/24 22:54 Nasal Cannula 4 04/16/24 21:14 Nasal Cannula 4 04/16/24 21:00 Nasal Cannula 4 Laboratory Results 04/17/24 04/16/24 04/16/24 Range/Units 06:09 16:45 15:39 WBC 12.31 H 9.30 (4.8-10.8) K/ul RBC 4.29 4.36 (4.20-5.40) M/uL Hgb 13.0 13.3 (12.0-16.0) g/dl Hct 38.9 40.6 (37.0-47.0) % MCV 90.7 93.1 (80.0-100.0) fL MCH 30.3 30.5 (25.0-34.0) pg MCHC 33.4 32.8 (32.0-36.0) g/dL RDW Std Deviation 50.4 H 54.5 H (36.4-46.3) fL RDW Coeff of Lucretia 15.3 H 16.1 H (11.5-14.5) % Plt Count 242 204 (130-400) K/uL MPV 11.0 10.7 (9.4-12.4) fL Immature Gran % (Auto) 0.3 % Neut % (Auto) 82.2 % Lymph % (Auto) 11.7 % Dixon % (Auto) 4.2 % Eos % (Auto) 1.4 % Baso % (Auto) 0.2 % Neut # (Auto) 7.64 H (1.40-6.50) K/uL Lymph # (Auto) 1.09 L (1.20-3.40) K/uL Dixon # (Auto) 0.39 (0.11-0.59) K/uL Eos # (Auto) 0.13 (0.00-0.50) K/uL Baso # (Auto) 0.02 (0.00-0.20) K/uL Immature Gran # (Auto) 0.03 (0.01-0.20) K/uL VBG pH 7.45 H (7.36-7.41) VBG pCO2 36 L (38-50) mmHg VBG pO2 62 mmHg VBG HCO3 25 mmol/L VBG O2 Saturation 92.9 % VBG Base Excess 1.3 mEq/L Sodium 133 L 135 L (136-145) mmol/L Potassium 4.0 3.8 (3.5-5.1) mmol/L Chloride 100 103 (98-107) mmol/L Carbon Dioxide 25 26 (21-32) mmol/L Anion Gap 8 6 (3-11) BUN 12 9 (6-23) mg/dl Creatinine 0.45 L 0.47 L (0.6-1.2) mg/dl Est Cr Clr Drug Dosing 117.2 110.8 ml/min Est GFR ( Amer) 121.9 120.1 ml/min Est GFR (Non-Af Amer) 105.1 103.7 ml/min BUN/Creatinine Ratio 26.7 H 19.1 (10-20) Glucose 133 H 111 H (70-99(Fasting)) mg/dl Lactate (0.4-2.0) mmol/L Calcium 9.5 9.6 (8.6-10.3) mg/dl Magnesium 1.9 1.9 (1.7-2.4) mg/dl Total Bilirubin 0.7 (0.2-1.0) mg/dl Direct Bilirubin 0.1 (0-0.2) mg/dl AST 17 (13-39) U/L ALT 27 (7-52) U/L Alkaline Phosphatase 109 H (34-104) U/L Troponin I High Sens 7.5 (0-14) pg/ml B-Natriuretic Peptide 47 (0-100) pg/ml Total Protein 7.3 (6.0-8.3) gm/dl Albumin 4.4 (3.4-5.0) gm/dl Procalcitonin < 0.02 (0-0.5) ng/ml Urine Color Yellow Urine Appearance Clear (Clear) Urine pH 7.5 (4.5-7.5) Ur Specific [place] 1.006 (1.000-1.030) Urine Protein Negative (Negative) Urine Glucose (UA) Negative (Negative) Urine Ketones Negative (Negative) Urine Blood Negative (Negative) Urine Nitrite Negative (Negative) Urine Bilirubin Negative (Negative) Urine Urobilinogen Negative (Negative) Ur Leukocyte Esterase Negative (Negative) Adenovirus (PCR) Not Detected (NotDetected) B. pertussis DNA (PCR) Not Detected (NotDetected) B.parapertussis DNA PCR Not Detected (NotDetected) C. pneumoniae DNA (PCR) Not Detected (NotDetected) Coronavirus OC43 (PCR) Not Detected (NotDetected) Coronavirus HKU1 (PCR) Not Detected (NotDetected) Coronavirus 229E (PCR) Not Detected (NotDetected) SARS-CoV-2 (PCR) Not Detected (NotDetected) Coronavirus NL63 (PCR) Not Detected (NotDetected) Human Metapneumovir PCR Not Detected (NotDetected) Influenza Type A (PCR) Not Detected (NotDetected) Influenza Type B (PCR) Not Detected (NotDetected) M. pneumoniae (PCR) Not Detected (NotDetected) Parainfluenza 1 (PCR) Not Detected (NotDetected) Parainfluenza 2 (PCR) Not Detected (NotDetected) Parainfluenza 3 (PCR) Not Detected (NotDetected) Parainfluenza 4 (PCR) Not Detected (NotDetected) RSV (PCR) Not Detected (NotDetected) Entero/Rhino (PCR) Not Detected (NotDetected) 04/16/24 Range/Units 15:34 WBC (4.8-10.8) K/ul RBC (4.20-5.40) M/uL Hgb (12.0-16.0) g/dl Hct (37.0-47.0) % MCV (80.0-100.0) fL MCH (25.0-34.0) pg MCHC (32.0-36.0) g/dL RDW Std Deviation (36.4-46.3) fL RDW Coeff of Lucretia (11.5-14.5) % Plt Count (130-400) K/uL MPV (9.4-12.4) fL Immature Gran % (Auto) % Neut % (Auto) % Lymph % (Auto) % Dixon % (Auto) % Eos % (Auto) % Baso % (Auto) % Neut # (Auto) (1.40-6.50) K/uL Lymph # (Auto) (1.20-3.40) K/uL Dixon # (Auto) (0.11-0.59) K/uL Eos # (Auto) (0.00-0.50) K/uL Baso # (Auto) (0.00-0.20) K/uL Immature Gran # (Auto) (0.01-0.20) K/uL VBG pH 7.38 (7.36-7.41) VBG pCO2 44 (38-50) mmHg VBG pO2 51 mmHg VBG HCO3 26 mmol/L VBG O2 Saturation 86.4 % VBG Base Excess 0.5 mEq/L Sodium (136-145) mmol/L Potassium (3.5-5.1) mmol/L Chloride (98-107) mmol/L Carbon Dioxide (21-32) mmol/L Anion Gap (3-11) BUN (6-23) mg/dl Creatinine (0.6-1.2) mg/dl Est Cr Clr Drug Dosing ml/min Est GFR ( Amer) ml/min Est GFR (Non-Af Amer) ml/min BUN/Creatinine Ratio (10-20) Glucose (70-99(Fasting)) mg/dl Lactate 0.7 (0.4-2.0) mmol/L Calcium (8.6-10.3) mg/dl Magnesium (1.7-2.4) mg/dl Total Bilirubin (0.2-1.0) mg/dl Direct Bilirubin (0-0.2) mg/dl AST (13-39) U/L ALT (7-52) U/L Alkaline Phosphatase (34-104) U/L Troponin I High Sens (0-14) pg/ml B-Natriuretic Peptide (0-100) pg/ml Total Protein (6.0-8.3) gm/dl Albumin (3.4-5.0) gm/dl Procalcitonin (0-0.5) ng/ml Urine Color Urine Appearance (Clear) Urine pH (4.5-7.5) Ur Specific [place] (1.000-1.030) Urine Protein (Negative) Urine Glucose (UA) (Negative) Urine Ketones (Negative) Urine Blood (Negative) Urine Nitrite (Negative) Urine Bilirubin (Negative) Urine Urobilinogen (Negative) Ur Leukocyte Esterase (Negative) Adenovirus (PCR) (NotDetected) B. pertussis DNA (PCR) (NotDetected) B.parapertussis DNA PCR (NotDetected) C. pneumoniae DNA (PCR) (NotDetected) Coronavirus OC43 (PCR) (NotDetected) Coronavirus HKU1 (PCR) (NotDetected) Coronavirus 229E (PCR) (NotDetected) SARS-CoV-2 (PCR) (NotDetected) Coronavirus NL63 (PCR) (NotDetected) Human Metapneumovir PCR (NotDetected) Influenza Type A (PCR) (NotDetected) Influenza Type B (PCR) (NotDetected) M. pneumoniae (PCR) (NotDetected) Parainfluenza 1 (PCR) (NotDetected) Parainfluenza 2 (PCR) (NotDetected) Parainfluenza 3 (PCR) (NotDetected) Parainfluenza 4 (PCR) (NotDetected) RSV (PCR) (NotDetected) Entero/Rhino (PCR) (NotDetected) Medications Administered Current Inpatient Medications Acetaminophen (Acetaminophen 325 Mg Tab) 650 mg PO Q4H PRN PRN Reason: Pain or Fever Stop: 05/16/24 22:49 Albuterol (Albut/Ipratrop 3mg/0.5mg Neb 3 Ml Vial) 3 ml NEB QIDR [facility]; Protocol Stop: 05/16/24 22:49 Last Admin: 04/17/24 07:58 Dose: Not Given Amlodipine Besylate (Amlodipine Besylate 5 Mg Tab) 2.5 mg PO [facility] Stop: 05/17/24 08:59 Aspirin (Aspirin 81 Mg Ectab) 81 mg PO [facility] Stop: 05/17/24 08:59 Atorvastatin Calcium (Atorvastatin 40 Mg Tab) 40 mg PO [facility] Stop: 05/17/24 08:59 Carvedilol (Carvedilol 12.5 Mg Tab) 12.5 mg PO BIDM [facility] Stop: 05/16/24 22:49 Last Admin: 04/16/24 23:49 Dose: 12.5 mg Doxycycline Hyclate (Doxycycline Hyclate 100 Mg Cap) 100 mg PO BID [facility] Stop: 04/24/24 08:59 Enoxaparin Sodium (Enoxaparin Inj 40 Mg/0.4 Ml Syr) 40 mg SQ [facility] Stop: 05/16/24 22:49 Last Admin: 04/16/24 23:49 Dose: 40 mg Escitalopram Oxalate (Escitalopram Oxalate 10 Mg Tab) 30 mg PO [facility] Stop: 05/17/24 08:59 Folic Acid (Folic Acid 1 Mg Tab) 1 mg PO [facility] Stop: 05/17/24 08:59 Gabapentin (Gabapentin 300 Mg Cap) 300 mg PO HS [facility] Stop: 05/16/24 22:49 Last Admin: 04/16/24 23:48 Dose: 300 mg Guaifenesin (Guaifenesin 600 Mg Tabcr) 600 mg PO Q12 [facility] Stop: 05/16/24 22:49 Last Admin: 04/16/24 23:48 Dose: 600 mg Guaifenesin/Dextromethorphan (Guaifenesin/Dextrom Syrup 100mg/10mg 5ml Udc) 5 ml PO Q6H PRN PRN Reason: Cough Stop: 05/16/24 22:49 Hydroxychloroquine Sulfate (Hydroxychloroquine Sulfate 200 Mg Tab) 400 mg PO HS [facility] Stop: 05/16/24 22:49 Last Admin: 04/16/24 23:48 Dose: 400 mg Methylprednisolone 40 mg/ (Syringe) 0.64 mls @ 1.5 mls/min IV Q12H [facility] Stop: 05/16/24 22:49 Last Admin: 04/17/24 06:25 Dose: 1.5 mls/min Lisinopril (Lisinopril 20 Mg Tab) 20 mg PO BIDM [facility] Stop: 05/16/24 22:49 Last Admin: 04/16/24 23:49 Dose: 20 mg Methotrexate (Methotrexate Sodium 2.5 Mg Tab) 10 mg PO Mo@0900,2100 [facility] Stop: 05/20/24 08:59 Polyethylene Glycol (Polyethylene (Miralax) 17 Gm Pack) 17 gm PO DAILY PRN PRN Reason: Constipation Stop: 05/16/24 22:49 Umeclidinium/Vilanterol (Umeclidinium/Vilanterol 62.5/25mcg 7 Puffs/Inhaler) 1 puffs INH QAM [facility] Stop: 05/17/24 08:59 (3) Lung cancer Laterality: right Lung location: upper lobe of lung Qualified Code(s): C34.11 - Malignant neoplasm of upper lobe, right bronchus or lung
[2024-04-17] MEDS: FOLIC ACID 1 MG TAB PO SCH (08:37)
[2024-04-17] MEDS: ATORVASTATIN 40 MG TAB PO SCH (08:37)
[2024-04-17] MEDS: DOXYCYCLINE HYCLATE 100 MG CAP PO SCH (08:37)
[2024-04-17] MEDS: ESCITALOPRAM OXALATE 10 MG TAB PO SCH (08:38)
[2024-04-17] MEDS: amLODIPine BESYLATE 5 MG TAB PO SCH (08:38)
[2024-04-17] MEDS: UMECLIDINIUM/VILANTEROL 62.5/25MCG 7 PUFFS/INHALER INH SCH (08:38)
[2024-04-17] MEDS: ASPIRIN 81 MG ECTAB PO SCH (08:38)
--- NOTE | 2024-04-17 12:54 | Electrocardiogram Report ---
Test Reason : Blood Pressure : / mmHG Vent. Rate : 081 BPM Atrial Rate : 081 BPM P-R Int : 188 ms QRS Dur : 086 ms QT Int : 418 ms P-R-T Axes : 069 -07 047 degrees QTc Int : 485 ms Normal sinus rhythm Premature atrial complexes Low voltage QRS Nonspecific ST abnormality Abnormal ECG When compared with ECG of 16-JUL-2022 18:05, MD interval has decreased Nonspecific T wave abnormality no longer evident in Inferior leads Confirmed by Edgardo Kumar ([id number]) on 04/17/2024 12:54:03 PM Referred By: Confirmed By:Edgardo Kumar
--- NOTE | 2024-04-17 13:08 | Electrocardiogram Report ---
Test Reason : Blood Pressure : / mmHG Vent. Rate : 068 BPM Atrial Rate : 068 BPM P-R Int : 220 ms QRS Dur : 092 ms QT Int : 458 ms P-R-T Axes : 077 -04 027 degrees QTc Int : 487 ms Sinus rhythm with sinus arrhythmia with 1st degree A-V block Otherwise normal ECG When compared with ECG of 16-APR-2024 15:40, (unconfirmed) CT interval has increased Confirmed by Edgardo Kumar ([id number] on 04/17/2024 1:08:34 PM Referred By: REFERRED SELF Confirmed By:Edgardo Kumar
[2024-04-17] MEDS: COUGH DROP (SUGAR FREE) LOZ 24 LOZ/1 BOX BUCCAL ONE (13:10)
--- OUTSIDE RECORDS SUMMARY | 2024-04-18 04:24 | External Medical Summary | Summary of Care ---
Author Name Unknown Organization [facility] Address [address] [place] [address] Phone [phone] Care Team Providers Care Mail Opener Name Role Phone Cristopher Woody MD Primary Care Provider [phone] Reason for Visit * Reason Onset Date Comments Medication Problem 04/13/2024 Anoro ellipta Encounter Details Date Type Department Care Team ([facility] st Contact Info) Description 04/13/2024 Telephone [facility] [address] [place] [address] Cristopher Woody MD [address] [place] [address] Medication Problem (Anoro ellipta) Allergies Active Allergy Reactions Criticality Noted Date Comments Amoxicillin Other (Please comment) 09/25/1999 Feels like she is "walkin on air" Prednisone High 05/30/2020 Confusion Tramadol 09/13/2011 Pt reports that she had a reaction of excessive sweating & extreme dizziness documented as of this encounter (statuses as of 04/15/2024) Medications Medication Sig Dispensed Refills Start Date End Date Status ASPIRIN EC 81 MG PO TBECIndications:HT N, goal below 140/90,Tobacco use disorder,Pain in limb,Obesity, BMI not known 1 TABLET DAILY 30 Tab 11 07/11/20 12 Active triamcinolone acetonide (ARISTOCORT) 0.1 % creamIndications:N eoplasm of uncertain behavior of skin Apply topically to affected area 3 times a day. (leg) 80 g 5 05/30/20 20 Active Additional Information Patient not taking.Reported on 08/27/2023 Nebulizer Device J44.9 1 Each 01/26/20 Active Nebulizer/Tubing/M outhpiece Kit J44.9 1 Kit 01/26/20 Active oxygen IN GAS 2LPM bled through cpap during hours of sleep 1 Each 09/29/20 21 Active hydrOXYzine HCl 25 MG Oral TabletIndications: Neoplasm of uncertain behavior of skin TAKE ONE TABLET BY MOUTH 3 TIMES A DAY NEEDED ITCHING 40 Tablet 3 01/10/20 22 Active Additional Information Patient not taking.Reported on 02/26/2024 Spironolactone 25 MG Oral Tablet (Aldactone)Indicat ions:HTN, goal below 140/90 TAKE 1/2 TABLET BY MOUTH DAILY. 16 Tablet 11 05/23/20 22 Active Additional Information Patient not taking.Reported on 02/26/2024 Ipratropium [place] 0.03 % Nasal Solution (Atrovent) Administer into nostril 2 Sprays 3 times a day as needed (as needed for runny or stuffy nose). 30 mL 6 08/15/20 22 Active CPAP every night at bedtime . Active Furosemide 40 MG Oral Tablet (Lasix) TAKE 1 TABLET BY MOUTH DAILY PLUS EXTRA 1/2 TABLET 2 DAYS PER WEEK 40 Tablet 5 10/15/20 22 Active Additional Information Patient not taking.Reported on 02/26/2024 Prochlorperazine Maleate 10 MG Oral Tablet (Compazine)Indicat ions:SCC (squamous cell carcinoma of lung), right (HCC) Take 1 Tablet by mouth every 6 hours as needed for Nausea. 30 Tablet 2 12/12/19 23 Active Additional Information Patient not taking.Reported on 08/27/2023 Dexamethasone 4 MG Oral Tablet (Decadron)Indicati ons:SCC (squamous cell carcinoma of lung), right (HCC) Take 3 tablets the night before and 3 tablets the morning of each chemotherapy appointment 36 Tablet 01/26/20 23 Active Additional Information Patient not taking.Reported on 08/27/2023 Folic Acid 1 MG Oral TabletIndications: Rheumatoid arthritis involving multiple sites with positive rheumatoid factor (HCC) TAKE ONE TABLET BY MOUTH DAILY 90 Tablet 3 05/27/20 23 Active Gabapentin 300 MG Oral Capsule (Neurontin) Take 1 Capsule by mouth at bedtime. 30 Capsule 11 06/26/20 23 Active amLODIPine Besylate 2.5 MG Oral Tablet (Norvasc) TAKE ONE TABLET BY MOUTH EVERY MORNING 90 Tablet 3 08/19/20 23 Active Flonase Sensimist 27.5 MCG/SPRAY Nasal Suspension (Fluticasone Furoate) Administer 2 Sprays into nostril in the morning. 9.1 mL 12 08/22/20 23 Active Additional Information Patient not taking.Reported on 02/26/2024 Ipratropium [place] 0.03 % Nasal Solution (Atrovent) Administer 2 Sprays into nostril in the morning and 2 Sprays at noon and 2 Sprays before bedtime. 30 mL 6 08/22/20 23 Active Hydroxychloroquine Sulfate 200 MG Oral Tablet (Plaquenil) TAKE 2 TABLETS BY MOUTH AT BEDTIME 180 Tablet 3 11/04/20 23 Active Albuterol Sulfate (2.5 MG/3ML) 0.083% Inhalation Nebulization Solution (Proventil)Indicat ions:COPD, group B, by GOLD 2017 classification ([facility]) 1 VIAL IN NEBULIZER EVERY 4-6 HOURS NEEDED WHEEZING OR SHORT OF BREATH. Dx J44.9 360 mL 5 11/11/20 23 Active Methotrexate Sodium 2.5 MG Oral TabletIndications: Rheumatoid arthritis involving multiple sites with positive rheumatoid factor ([facility]),Encounter for long-term (current) use of medications TAKE 8 TABLETS BY MOUTH ONE TIME PER WEEK 96 Tablet 1 12/24/19 24 Active Carvedilol 12.5 MG Oral Tablet (Coreg)Indications :HTN, goal below 140/90,Tobacco use disorder,Pain in limb TAKE ONE TABLET BY MOUTH 2 TIMES A DAY 180 Tablet 2 12/21/19 24 Active Terbinafine HCl 1 % External Cream (LamISIL AT ATHLETE'S FOOT) APPLY 1 G TOPICALLY TO AFFECTED AREA IN THE MORNING AND 1 G BEFORE BEDTIME. TO AFFECTED AREA.. 45 g 3 12/23/19 24 Active Lisinopril 40 MG Oral Tablet TAKE 1/2 TABLET BY MOUTH TWICE A DAY 90 Tablet 1 01/01/20 24 Active Bevespi Aerosphere 9-4.8 MCG/ACT Inhalation Aerosol Inhale 2 Puffs by mouth in the morning and 2 Puffs before bedtime. 10.7 g 3 01/10/20 24 Active Additional Information Patient not taking.Reported on 02/26/2024 methylPREDNISolone 4 MG Oral Tablet Therapy Pack (Medrol Dosepack) follow package directions 21 Tablet 2 01/31/20 24 Active Additional Information Patient not taking.Reported on 02/26/2024 traZODone HCl 50 MG Oral Tablet (Desyrel)Indicatio ns:Persistent insomnia TAKE 1 TO 3 TABLETS BY MOUTH AT BEDTIME 270 Tablet 1 02/19/20 24 Active Zoster Vac Recomb Adjuvanted 50 MCG/0.5ML Intramuscular Suspension Reconstituted (Shingrix)Indicati ons:Immunization due Inject 0.5 mL into a large muscle now and repeat dose in 60 to 180 days 1 Each 1 02/19/20 24 Active Additional Information Patient not taking.Reported on 02/26/2024 Escitalopram Oxalate 10 MG Oral Tablet (Lexapro)Indicatio ns:Current mild episode of major depressive disorder without prior episode (HCC) TAKE 3 TABLETS BY MOUTH IN THE MORNING 270 Tablet 3 03/05/20 24 Active Tiotropium [place]-Olodaterol 2.5-2.5 MCG/ACT Inhalation Aerosol Solution (Stiolto Respimat)Indicatio ns:COPD, group B, by GOLD 2017 classification ([facility]) Inhale 2 Puffs by mouth in the morning. 4 g 11 04/13/20 24 Active Atorvastatin Calcium 40 MG Oral Tablet (Lipitor) TAKE 1 TABLET BY MOUTH EVERY DAY IN THE MORNING 90 Tablet 1 10/08/20 23 024 Discontinued Anoro Ellipta 62.5-25 MCG/ACT Inhalation Aerosol Powder Breath Activated (umeclidinium-jaye nterol)Indications :COPD, group B, by GOLD 2017 classification ([facility]) Inhale 1 Puff by mouth in the morning. 90 Each 3 01/01/20 24 024 Discontinued(Fo rmulary/Cost) documented as of this encounter (statuses as of 04/15/2024) Active Problems Problem Noted Date Diagnosed Date Encounter for antineoplastic chemotherapy 2022 SCC (squamous cell carcinoma of lung), right Current mild episode of myron r depressive disorder without prior episode 08/09/2022 Splenic artery aneurysm 08/07/2022 PAD (peripheral artery disease) 08/07/2022 Prediabetes 2022 Overview: Per Prediabetes protocol SALGADO (dyspnea on exertion) 01/25/2021 Bilateral carpal tunnel syndrome 01/25/2021 Trigger index finger of right hand 01/25/2021 Rhinitis, nonallergic 07/15/2020 Ground glass opacity present on imaging of lung 01/04/2020 AMRIK (obstructive sleep apnea) 11/11/2019 Nocturnal hypoxemia 11/11/2019 Trigger middle finger of left hand 10/14/2019 Lung nodule 09/30/2019 Insomnia 09/30/2019 COPD, group B, by GOLD 2017 classification 09/07 Overview: Per COPD GOLD Classification 09/11/19 In Check dial performed to assess inhaler technique: Name of inhaler Albuterol Pass: Yes at 55L/min. Encouraged to take nice slow deep breaths and use a aero chamber. Test performed by Dania RUG DRYING MACHINE OPERATOR CPFT Primary osteoarthritis of both knees 09/30/2018 Primary osteoarthritis of left knee 03/26/2018 History of tobacco use 02/07/2017 Overview: quit 11/24/16 Encounter for long-term (current) use of medicat ions 09/25/2016 Rheumatoid arthritis involvi ng multiple sites with positive rheumatoid factor 08/24/2016 Post-traumatic headache, not intractable 016 ASCVD (arteriosclerotic cardiovascular disease) 02/06/2016 Severe eczema 02/08/2014 Idiopathic cardiomyopathy 08/27/2013 HTN, goal below 140/90 09/17/2011 De Quervain's tenosynovitis 05/10/2006 documented as of this encounter (statuses as of 04/15/2024) Resolved Problems Problem Noted Date Diagnosed Date Resolved Date Pancytopenia 02/18/2023 02/19/2024 Chest pain 11/11/2019 05/30/2020 COPD, group C, by GOLD 2017 classification 05/04/2019 09/09/2019 Overview: Per COPD GOLD Classification COPD, severity to be determined 01/26/2019 05/06/2019 Overview: Per COPD GOLD Classification COPD exacerbation 12/18/2018 01/04/2020 Overview: 09/11/19 In Check dial performed to assess inhaler technique: Name of inhaler Albuterol Pass: Yes at 55L/min. Encouraged to take nice slow deep breaths and use a aero chamber. Test performed by Dania RUG DRYING MACHINE OPERATOR CPFT Plantar wart of left foot 12/07/2016 Inflammatory polyarthritis 08/22/2016 0 06/18/2017 Serologic abnormality 08/22/20162016 Body mass index 39.0-39.9, adult 08/09/2016 08/13/2017 Overview: bmi= 39.18 08/09/16 Tobacco use disorder 04/13/2016 017 Head injury 04/04/2016 08/13/2017 Contusion of face 04/04/2016 08/13/2017 Body mass index 36.0-36.9, adult 08/05/2015 08/13/2017 Overview: bmi= 37.30 08/05/15 Hypokalemia 08/05/2015 02/06/2016 History of tobacco use 08/05/201504/13 Overview: quit 07/13/15 Calcific tendinitis of right shoulder 03/21/2015 05/30/2020 Respiratory abnormality 02/02/201501/23 Tinea corporis 04/27/2014 02/06/2016 Chronic dermatitis 08/27/2013 7 Nail disorder 06/05/2013 02/06/2016 Mammogram declined 06/05/2013 6 Obesity, morbid (more than 1 00 lbs over ideal weight or BMI > 40) 08/19/2012 02/19/2024 Overview: bmi= 40.19 08/19/12 Chronic rhinitis 08/19/2012 07/15/2020 Tobacco use disorder 08/19/2012 015 Other, multiple, and unspeci fied sites, insect bite, nonvenomous, without mention of infection(919.4) 07/10/2012 02/06/2016 Dermatitis due to plant 07/10/201201/23 Obesity, BMI not known 02/11/201208/13 Overview: bmi= 39.22 02/11/12 Screening for colon cancer 02/11/2012 0 02/06/2016 History of tobacco use 02/11/201207/10 Overview: quit 12/06 INT DERANGEMENT RIGHT KNEE NOS 07/12/2011 02/06/2016 Idiopathic cardiomyopathy 07/10/2011 ADVANCE DIRECTIVE INFORMATION 06/15/2011 02/02/2015 Overview: No, Advance Directive brochure given to patient. Abnormal mammogram 12/13/2010 6 OBESITY, BMI= 39.12 11/30/10 11/30/2010 0 02/06/2016 Special screening for malign ant neoplasms, colon 11/30/2010 02/06/2016 Acute sinusitis 09/05/2010 02/02/2015 Chronic rhinitis 09/05/2010 08/19/2012 Cough 09/05/2010 02/02/2015 Carpal tunnel syndrome of right wrist 07/13/2010 04/07/2019 Tobacco use disorder 03/06/2010 012 Dysfunction of eustachian tube 03/06/2010 02/02/2015 Acute pharyngitis 03/06/2010 02/02/2015 History of tobacco use 01/26/201002/02 BURSITIS, LEFT SHOULDER 09/16/200601/23 ROTATOR CUFF SYNDROME, LEFT SHOULDER 09/16/2006 02/02/2015 NUMBNESS 05/10/2006 02/02/2015 ROUTINE MEDICAL EXAM 04/09/2006 015 ADVANCE DIRECTIVE INFORMATION 05/17/2005 02/02/2015 HTN, goal below 140/90 11/05/200301/26 PAIN IN LIMB, DIFFUSE LEFT FOOT PAIN 11/05/2003 02/02/2015 Tobacco use disorder 11/05/2003 012 OBESITY, UNSPECIFIED 11/05/2003 015 Pain in limb 10/25/1999 02/02/2015 Dermatitis 10/25/1999 02/02/2015 OSTEOARTHROS NOS-UNSPEC 09/25/199901/23 HTN, goal below 130/80 09/17 Dyslipidemia, goal LDL below 70 02/11/2012 Chronic coronary artery disease 02/11/2012 Overview: moderate non-occlusive CAD cath 12/04 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 ASCVD 02/06/2016 Dyslipidemia, goal LDL below 100 02/06/2016 documented as of this encounter (statuses as of 04/15/2024) Immunizations Name Administration Dates Next Due COVID-19 mRNA, LNP-s, No Pre serve, 2-Dose Series (Pfizer) 03/23/2021,03/02/2021 H1N1 2009 Influenza, IM 01/26/2010 PPD 03/23/2013 Pneumococcal Conjugate Vacc, 13 Valent (Prevnar) 08/12/2019 Pneumococcal Conjugate Vacci ne, 20-valent ([id number]) 02/19/2024 Pneumococcal Polysaccharide PPV23 (Pneumovax) 09/25/2016,01/26/2010 Seasonal Influenza, PF, 6 M & above, IM , (FluLaval or Fluzone) 08/01/2023,08/09/2022,08/21/2021,12/2019,08/12/2019,08/04/2018,09/26/20 17 Seasonal Influenza, Quadriva lent, No Preserve, IM 08/09/2016 Seasonal Influenza, Split, I IV3, With Preserve, Inj 08/05/2015,08/31/2014,08/27/2013,07/26,09/13/2011,11/30/2010 08/05/2016 TD - Tetanus/Diptheria (ADULT) 05/04/2006 TDAP (age 10 and older)(Boostrix) 03/19/2013 03/19/2023 documented as of this encounter Social History Tobacco Use Types Packs/Day Years Used Date Smoking Tobacco: Former Cigarettes 1 40 1 - 09/11/2019 Passive Smoke Exposure: Past Smokeless Tobacco: Never Comments:no passive smoke cu rrently Both parents smoked as a child Alcohol Use Standard Drinks/Week Comments No 0 (1 standard drink = 0.6 oz pur e alcohol) PHQ-2 Answer Date Recorded PHQ Adult Total Score 17 03/08/2021 Hunger Vital Sign Answer Date Recorded Within the past 12 months, y ou worried that your food would run out before you got the money to buy more. Never true 03/08/20 21 Within the past 12 months, t he food you bought just didn't last and you didn't have money to get more. Never true 03/08/2021 Sex and Gender Information Value Date Recorded Sex Assigned at Female 09/01/2019 1:58 PM EDT Gender Identity Female 09/01/2019 1:58 PM EDT Sexual Orientation Straight 09/01/2019 1: 58 PM EDT Job Start Date Occupation Industry Not on file Not on file Not on file documented as of this encounter Miscellaneous Notes * Telephone Encounter - Cayla Rodríguez LPN - 04/15/2024 9:04 AM EDT Called and spoke with patient and she is aware of the information from Dr. Woody. * Telephone Encounter - Cristopher Woody MD - 04/13/2024 4:48 PM EDT Notify Pt: New script for Stioloto 2 puffs daily in AM sent to [facility]. * Telephone Encounter - Leatha Barth LPN - 04/13/2024 12:41 PM EDT Received fax from [facility]. Anoro ellipta is not covered on pt's insurance. They said an alternative is spiriva or stiloto But I can't promise that they my need prior auths. Thanks documented in this encounter Plan of Treatment Upcoming Encounters Date Type Department Care Team (Late st Contact Info) Description 05/04/2024 10:00 AM EDT Office Visit Podiatry [facility] [address] [facility] [place] [address] Carola Arias DPM [address] [place] [id number] 05/13/2024 8:45 AM EDT Office Visit Hematology/Oncology [place], [place] [address] [place] [address] Neal Schneider MD [address] [facility] [place] [address] 06/09/2024 10:00 AM EDT Office Visit Pulmonary Medicine, [facility] [address] [place] [address] Stanley Norton MD [address] [facility] [facility] [place] [address] 08/17/2024 10:30 AM EDT [facility] [address] [place] [address] 08/26/2024 11:30 AM EDT Office Visit Vascular Surgery, [facility] [address] [place] [address] Jaren Luo MD [address] [place] [address] 08/31/2024 11:40 AM EDT Office Visit Sleep Disorders Ctr [facility] [address] [facility] [place] [id number] Quita Mooney DO [address] [place] [address] 10/29/2024 11:00 AM EST Office Visit Rheumatology [place] [id number] [facility] [place], [place] [address] Markos Alberts MD [address] [facility] [place] [address] Health Maintenance Due Date Last Done Comments HIV Screening 1974 Zoster Vaccines (1 of 2) 1978 Cologuard 02/06/2004 Fecal Occult Blood Test 02/06/2004 Sigmoidoscopy 02/06/2004 PAP SMEAR-ANNUAL AGES 18-100 08/09/2017 08/09/2016 (Refused), 08/30/2015 (Refused), 08/27/2013 (Refused), Additional history exists Depression, Most Recent Score >= 10 (will fire each visit until score < 10) 03/09/2021 03/08/2021 COVID-19 Vaccine (3 - Pfizer risk series) 04/20/2021 03/23/2021, 03/02/2021 DTaP,Tdap,and Td Vaccines (2 - Td or Tdap) 03/19/2023 03/19/2013, 05/04/2006 DXA Scan 02/06/2024 Mammogram 03/22/2024 03/22/2023, 01/24, 12/21/2010, Additional history exists HbA1c 08/01/2024 08/01/2023, 06/0 06/2022, 02/01/2022 Colonoscopy 10/23/2024 10/23/2023, 1 04/2023, 05/14/2013, Additional history exists Colorectal Cancer Screening 10/23/2024 GFR 12/13/2024 12/13/2023, 09/0 05/2023, 02/07/2023, Additional history exists O2 ASSESSMENT COMPLETED IN PAST YEAR FOR COPD 03/10/2025 03/10/2024 Albumin/Creatinine Ratio 06/18/2025 06/18/2022 Alpha-1 Antitrypsin Completed 01/10/2023 Influenza Vaccine (FLU shot) Completed 08/01/2023, 08/09/2022, 08/21/2021, Additional history exists RETIRED - COLONOSCOPY-ANNUAL AGES 18-100 Discontinued 10/23/2023, 05/10/2023, 02/07/2017 (Refused), Additional history exists Pneumococcal Vaccine: 65+ Years Completed 02/19/2024, 08/12/2019, 09/25/2016, Additional history exists GARDASIL-HPV IMMUNIZATION SERIES Aged Out No longer eligible based on patient's age to complete this topic Hepatitis B Aged Out No longer eligi ble based on patient's age to complete this topic MENINGOCOCCAL (MENACTRA/MENVEO) Aged Out No longer eligible based on patient's age to complete this topic documented as of this encounter Medical Devices Not on filedocumented as of this encounter Visit Diagnoses Diagnosis COPD, group B, by GOLD 2017 classification (HCC)- Primary documented in this encounter Care Teams Mail Opener Relationship Specialty Start Date End Date Cristopher Woody MD [address] [place] [address] PCP - General Family Medicine 06/27/18 documented as of this encounter
--- OUTSIDE RECORDS SUMMARY | 2024-04-18 04:25 | External Medical Summary | Summary of Care ---
Author Name Unknown Organization [facility] Address [address] [place] [address] Phone [phone] Care Team Providers Care Chemical Process Engineer Name Role Phone Cristopher Woody MD Primary Care Provider [phone] Encounter Details Date Type Department Care Team (Late st Contact Info) Description 01/01/[address] [facility] [address] [place] [address] Cristopher Woody MD [address] [place] [address] Allergies Active Allergy Reactions Criticality Noted Date Comments Amoxicillin Other (Please comment) 09/25/1999 Feels like she is "walkin on air" Prednisone High 05/30/2020 Confusion Tramadol 09/13/2011 Pt reports that she had a reaction of excessive sweating & extreme dizziness documented as of this encounter (statuses as of 04/01/2024) Medications Medication Sig Dispensed Refills Start Date [...] on 08/27/2023 Nebulizer Device J44.9 1 Each 0 01/26/20 21 Active Nebulizer/Tubing/M outhpiece Kit J44.9 1 Kit 0 01/26/20 21 Active oxygen IN GAS 2LPM bled through cpap during hours of sleep 1 Each 0 09/29/20 21 Active hydrOXYzine HCl 25 MG [...] Information Patient not taking.Reported on 02/26/2024 Ipratropium [place] 0.03 % Nasal Solution (Atrovent) Administer into nostril 2 Sprays 3 times a day as needed (as needed for runny or stuffy nose). 30 mL 6 08/15/20 22 Active CPAP every night at bedtime . 0 Active Furosemide 40 MG Oral Tablet (Lasix) [...] morning of each chemotherapy appointment 36 Tablet 0 01/26/20 23 Active Additional Information Patient not [...] Information Patient not taking.Reported on 02/26/2024 Ipratropium [place] 0.03 % Nasal Solution (Atrovent) Administer 2 Sprays into nostril in the morning and 2 Sprays at noon and 2 Sprays before bedtime. 30 mL 6 08/22/20 23 Active Atorvastatin Calcium 40 MG Oral Tablet (Lipitor) TAKE 1 TABLET BY MOUTH EVERY DAY IN THE MORNING 90 Tablet 1 10/08/20 23 Active Hydroxychloroquine Sulfate 200 MG Oral Tablet (Plaquenil) TAKE 2 TABLETS BY MOUTH AT BEDTIME 180 Tablet 3 11/04/20 23 Active Albuterol Sulfate (2.5 MG/3ML) 0.083% Inhalation Nebulization Solution (Proventil)Indicat ions:COPD, group B, by GOLD 2017 classification ([facility]) 1 VIAL IN NEBULIZER EVERY 4-6 HOURS NEEDED WHEEZING OR SHORT OF BREATH. Dx J44.9 360 mL 5 11/11/20 23 Active Methotrexate Sodium 2.5 MG Oral TabletIndications: Rheumatoid arthritis involving multiple sites with positive rheumatoid factor ([facility]),Encounter for long-term (current) use of [...] AREA.. 45 g 3 12/23/19 24 Active Anoro Ellipta 62.5-25 MCG/ACT Inhalation Aerosol Powder Breath Activated (umeclidinium-jaye nterol)Indications :COPD, group B, by GOLD 2017 classification ([facility]) Inhale 1 Puff by mouth in the morning. 90 Each 3 01/01/20 24 025 Active Ventolin HFA 108 (90 Base) MCG/ACT Inhalation Aerosol SolutionIndication s:COPD, group B, by GOLD 2017 classification ([facility]) USE 2 PUFFS EVERY 4 HOURS NEEDED FOR WHEEZING 18 g 2 05/29/20 22 024 Discontinued(Re fill) Lisinopril 40 MG Oral Tablet TAKE 1/2 TABLET TWICE A DAY 90 Tablet 2 06/13/20 23 024 Discontinued Escitalopram Oxalate 10 MG Oral Tablet (Lexapro)Indicatio ns:Current mild episode of major depressive disorder without prior episode ([facility]) Take 3 Tablets by mouth in the morning. 270 Tablet 3 06/21/20 23 024 Discontinued traZODone HCl 50 MG Oral Tablet (Desyrel)Indicatio ns:Persistent insomnia Take 1-3 Tablets by mouth at bedtime. 270 Tablet 1 08/01/20 23 024 Discontinued(In dication List Clean Up) methylPREDNISolone 4 MG Oral Tablet Therapy Pack (Medrol Dosepack) follow package directions 21 Tablet 2 10/28/20 23 024 Discontinued(Re fill) Bevespi Aerosphere 9-4.8 MCG/ACT Inhalation Aerosol Inhale 2 Puffs by mouth in the morning and 2 Puffs before bedtime. 10.7 g 3 10/30/20 23 024 Discontinued(Re fill) Hospital, Clinic, or Other Facility Administered Medication Ordered Dose Route Frequency Start Date End Date Status Albuterol Sulfate (Proventil) (2.5 MG/3ML) 0.083% inhalation solution 2.5 mgIndications:COPD, group B, by GOLD 2017 classification ([facility]) 2.5 mg NEBULIZER Q4H PRN 02/13/2022 4 Discontinued documented as of this encounter (statuses as of 04/01/2024) Active Problems Problem Noted Date Diagnosed Date [...] a aero chamber. Test performed by Dania CRACK OFF PERSON CPFT Primary osteoarthritis of both knees 09/30/2018 [...] as of this encounter (statuses as of 04/01/2024) Resolved Problems Problem Noted Date Diagnosed Date [...] a aero chamber. Test performed by Dania CRACK OFF PERSON CPFT Plantar wart of left foot 12/07/2016 [...] as of this encounter (statuses as of 04/01/2024) Immunizations Name Administration Dates Next Due COVID-19 mRNA, LNP-s, No Pre serve, 2-Dose Series (Pfizer) 03/23/2021,03/02/2021 H1N1 2009 Influenza, IM 01/26/2010 PPD 03/23/2013 Pneumococcal Conjugate Vacc, 13 Valent (Prevnar) 08/12/2019 Pneumococcal Polysaccharide PPV23 (Pneumovax) 09/25/2016,01/26/2010 Seasonal Influenza, [...] encounter Miscellaneous Notes * Telephone Encounter - Cristopher Woody MD - 01/01/2024 1:57 PM EST Try Anoro Ellipta 1 puff daily * [facility]/01/[facility]24 11:42 AM EST Did you pend patient's preferred pharmacy and medication before forwarding?yes Pharmacy: No prescriptions requested or ordered in this encounter Last Visit: 08/12/2023 (in office), Visit date not found (telemedicine) Next Visit: 02/17/2024 If no future appointments scheduled, and last appointment is greater than a year ago, please schedule patient for a follow-up appointment Last date the medication was ordered: 1 Is this request for a controlled substance?No [facility] Pharm[facility] requesting alternative for bevespi aerosphere inh (120) Urine Drug Screen:No results found. However, due to the size of the patient record, not all encounters were searched. Please check Results Review for a complete set of results. Patient Phone Numbers Labs: Lab Results Component Value Date/Time CREAT 0.6 12/13/2023 09:31 AM CREAT 0.7 12/07/2020 09:30 AM POTASSIUM 4.5 12/13/2023 09:31 AM POTASSIUM 4.0 12/07/2020 09:30 AM TSH 0.97 05/09/2015 02:43 PM LDLCALC 40 08/01/2023 07:33 AM LDLCALC 65 06/27/2018 01:15 PM LDLDIRECT 64 02/24/2021 10:05 AM LDLDIRECT 68 12/23/2019 12:40 PM LDLDIRECT 82 05/09/2015 02:43 PM ALT 29 12/13/2023 09:31 AM ALT 30 12/07/2020 09:30 AM HGBA1C 5.8 (H) 08/01/2023 07:33 AM documented in this encounter Plan of Treatment Upcoming Encounters Date Type Department Care Team (Late st Contact Info) Description 04/07/2024 9:45 AM EDT Imaging Radiology [facility] [address] [facility] [place] [address] 05/04/2024 10:00 AM EDT Office Visit Podiatry [facility] [address] [facility] [place] [address] Carola Arias DPM [address] [facility] [place] [address] 05/13/2024 8:45 AM EDT Office Visit Hematology/Oncology [facility] [address] [facility] [place] [address] Neal Schneider MD [address] [facility] [place] [address] 06/09/2024 10:00 AM EDT Office Visit Pulmonary Medicine, [facility] [address] [facility] [address] [place] [address] Stanley Norton MD [address] [place] [facility] [place] [address] 08/17/2024 11:00 AM EDT Imaging Vascular Lab, [facility]nd [facility] [place] [address] [facility] [address] [address] [place] [address] 08/26/2024 11:30 AM EDT Office Visit Vascular Surgery, [facility] [address] [facility] [address] [place] [address] Jaren Luo MD [address] [place] [address] 08/31/2024 11:40 AM EDT Office Visit Sleep Disorders Ctr [facility] [address] [place] [address] Quita Mooney, [address] [place] [address] 10/29/2024 11:00 AM EST Office Visit Rheumatology [facility] [address] [place] [address] Markos Alberts MD [address] [place] [address] Health Maintenance Due Date Last Done Comments [...] 12/21/2010, Additional history exists HbA1c 08/01/2024 08/01/2023, 06/2022, 02/01/2022 Colonoscopy 10/23/2024 10/23/2023, 04/25, 05/14/2013, Additional history exists Colorectal Cancer Screening 10/23/2024 GFR 12/13/2024 12/13/2023, 090 05/2023, 02/07/2023, Additional history exists O2 ASSESSMENT [...] Primary documented in this encounter Care Teams Chemical Process Engineer Relationship Specialty Start Date End Date Cristopher Woody MD [address] [place] [address] PCP - General Family Medicine 06/27/18 documented as of this encounter
--- OUTSIDE RECORDS SUMMARY | 2024-04-18 04:25 | External Medical Summary | Summary of Care ---
Author Name Unknown Organization [facility] Address [address] [place] [address] Phone [phone] Care Team Providers Care College Or University Faculty Member Name Role Phone Isidra Woody MD Primary Care Provider [phone] Reason for Visit * Reason Comments eRx-Medication Refill Encounter Details Date Type Department Care Team (Late st Contact Info) Description 04/12/2024 Refill [facility] [address] [place] [address] Isidra Woody MD [address] [place] [address] Allergies Active Allergy Reactions Criticality Noted Date Comments Amoxicillin Other (Please comment) 09/25/1999 Feels like she is "walkin on air" Prednisone High 05/30/2020 Confusion Tramadol 09/13/2011 Pt reports that she had a reaction of excessive sweating & extreme dizziness documented as of this encounter (statuses as of 04/14/2024) Medications Medication Sig Dispensed Refills Start Date End Date Status ASPIRIN EC 81 MG PO TBECIndications:HT N, goal below 140/90,Tobacco use disorder,Pain in limb,Obesity, BMI not known 1 TABLET DAILY 30 Tab 11 2 Active triamcinolone acetonide (ARISTOCORT) 0.1 % creamIndications:N eoplasm of uncertain behavior of skin Apply topically to affected area 3 times a day. (leg) 80 g 5 0 Active Additional Information Patient not taking.Reported on 08/27/2023 Nebulizer Device J44.9 1 Each 1 Active Nebulizer/Tubing/M outhpiece Kit J44.9 1 Kit 1 Active oxygen IN GAS 2LPM bled through cpap during hours of sleep 1 Each 1 Active hydrOXYzine HCl 25 MG Oral TabletIndications: Neoplasm of uncertain behavior of skin TAKE ONE TABLET BY MOUTH 3 TIMES A DAY NEEDED ITCHING 40 Tablet 3 2 Active Additional Information Patient not taking.Reported on 02/26/2024 Spironolactone 25 MG Oral Tablet (Aldactone)Indicat ions:HTN, goal below 140/90 TAKE 1/2 TABLET BY MOUTH DAILY. 16 Tablet 11 2 Active Additional Information Patient not taking.Reported on 02/26/2024 Ipratropium [place] 0.03 % Nasal Solution (Atrovent) Administer into nostril 2 Sprays 3 times a day as needed (as needed for runny or stuffy nose). 30 mL 6 2 Active CPAP every night at bedtime . Active Furosemide 40 MG Oral Tablet (Lasix) TAKE 1 TABLET BY MOUTH DAILY PLUS EXTRA 1/2 TABLET 2 DAYS PER WEEK 40 Tablet 5 2 Active Additional Information Patient not taking.Reported on 02/26/2024 Prochlorperazine Maleate 10 MG Oral Tablet (Compazine)Indicat ions:SCC (squamous cell carcinoma of lung), right (HCC) Take 1 Tablet by mouth every 6 hours as needed for Nausea. 30 Tablet 2 3 Active Additional Information Patient not taking.Reported on 08/27/2023 Dexamethasone 4 MG Oral Tablet (Decadron)Indicati ons:SCC (squamous cell carcinoma of lung), right (HCC) Take 3 tablets the night before and 3 tablets the morning of each chemotherapy appointment 36 Tablet 3 Active Additional Information Patient not taking.Reported on 08/27/2023 Folic Acid 1 MG Oral TabletIndications: Rheumatoid arthritis involving multiple sites with positive rheumatoid factor (HCC) TAKE ONE TABLET BY MOUTH DAILY 90 Tablet 3 3 Active Gabapentin 300 MG Oral Capsule (Neurontin) Take 1 Capsule by mouth at bedtime. 30 Capsule 11 3 Active amLODIPine Besylate 2.5 MG Oral Tablet (Norvasc) TAKE ONE TABLET BY MOUTH EVERY MORNING 90 Tablet 3 3 Active Flonase Sensimist 27.5 MCG/SPRAY Nasal Suspension (Fluticasone Furoate) Administer 2 Sprays into nostril in the morning. 9.1 mL 12 3 Active Additional Information Patient not taking.Reported on 02/26/2024 Ipratropium [place] 0.03 % Nasal Solution (Atrovent) Administer 2 Sprays into nostril in the morning and 2 Sprays at noon and 2 Sprays before bedtime. 30 mL 6 3 Active Hydroxychloroquine Sulfate 200 MG Oral Tablet (Plaquenil) TAKE 2 TABLETS BY MOUTH AT BEDTIME 180 Tablet 3 3 Active Albuterol Sulfate (2.5 MG/3ML) 0.083% Inhalation Nebulization Solution (Proventil)Indicat ions:COPD, group B, by GOLD 2017 classification ([facility]) 1 VIAL IN NEBULIZER EVERY 4-6 HOURS NEEDED WHEEZING OR SHORT OF BREATH. Dx J44.9 360 mL 5 3 Active Methotrexate Sodium 2.5 MG Oral TabletIndications: Rheumatoid arthritis involving multiple sites with positive rheumatoid factor ([facility]),Encounter for long-term (current) use of medications TAKE 8 TABLETS BY MOUTH ONE TIME PER WEEK 96 Tablet 1 4 Active Carvedilol 12.5 MG Oral Tablet (Coreg)Indications :HTN, goal below 140/90,Tobacco use disorder,Pain in limb TAKE ONE TABLET BY MOUTH 2 TIMES A DAY 180 Tablet 2 4 Active Terbinafine HCl 1 % External Cream (LamISIL AT ATHLETE'S FOOT) APPLY 1 G TOPICALLY TO AFFECTED AREA IN THE MORNING AND 1 G BEFORE BEDTIME. TO AFFECTED AREA.. 45 g 3 4 Active Lisinopril 40 MG Oral Tablet TAKE 1/2 TABLET BY MOUTH TWICE A DAY 90 Tablet 1 4 Active Bevespi Aerosphere 9-4.8 MCG/ACT Inhalation Aerosol Inhale 2 Puffs by mouth in the morning and 2 Puffs before bedtime. 10.7 g 3 4 Active Additional Information Patient not taking.Reported on 02/26/2024 methylPREDNISolone 4 MG Oral Tablet Therapy Pack (Medrol Dosepack) follow package directions 21 Tablet 2 4 Active Additional Information Patient not taking.Reported on 02/26/2024 traZODone HCl 50 MG Oral Tablet (Desyrel)Indicatio ns:Persistent insomnia TAKE 1 TO 3 TABLETS BY MOUTH AT BEDTIME 270 Tablet 1 4 Active Zoster Vac Recomb Adjuvanted 50 MCG/0.5ML Intramuscular Suspension Reconstituted (Shingrix)Indicati ons:Immunization due Inject 0.5 mL into a large muscle now and repeat dose in 60 to 180 days 1 Each 1 4 Active Additional Information Patient not taking.Reported on 02/26/2024 Escitalopram Oxalate 10 MG Oral Tablet (Lexapro)Indicatio ns:Current mild episode of major depressive disorder without prior episode (HCC) TAKE 3 TABLETS BY MOUTH IN THE MORNING 270 Tablet 3 4 Active Atorvastatin Calcium 40 MG Oral Tablet (Lipitor) TAKE 1 TABLET BY MOUTH EVERY DAY IN THE MORNING 90 Tablet 1 4 Active Atorvastatin Calcium 40 MG Oral Tablet (Lipitor) TAKE 1 TABLET BY MOUTH EVERY DAY IN THE MORNING 90 Tablet 1 3 04/14/20 24 Discontinued documented as of this encounter (statuses as of 04/14/2024) Active Problems Problem Noted Date Diagnosed Date [...] a aero chamber. Test performed by Dania VIEIRA CPFT Primary osteoarthritis of both knees 09/30/2018 [...] as of this encounter (statuses as of 04/14/2024) Resolved Problems Problem Noted Date Diagnosed Date [...] a aero chamber. Test performed by Dania CENTER RECEPTIONIST CPFT Plantar wart of left foot 12/07/2016 [...] as of this encounter (statuses as of 04/14/2024) Immunizations Name Administration Dates Next Due COVID-19 mRNA, LNP-s, No Pre serve, 2-Dose Series (Pfizer) 03/23/2021,03/02/2021 H1N1 2009 Influenza, IM 01/26/2010 PPD 03/23/2013 Pneumococcal Conjugate Vacc, 13 Valent (Prevnar) 08/12/2019 Pneumococcal Conjugate Vacci ne, 20-valent ([id number]) 02/19/2024 Pneumococcal Polysaccharide PPV23 (Pneumovax) 09/25/2016,01/26/2010 Seasonal [...] encounter Miscellaneous Notes * Telephone Encounter - Hilaria Caldwell, [facility] - 04/14/2024 6:58 AM EDTSigned Prescriptions: Disp Refills Atorvastatin Calcium 40 MG Oral Tablet (Li*90 Tab*1 Sig: TAKE 1 TABLET BY MOUTH EVERY DAY IN THE MORNINGAuthorizing Provider: ISIDRA WOODY User: HILARIA CALDWELL documented in this encounter Plan of Treatment Upcoming Encounters Date Type Department Care Team (Late st Contact Info) Description 05/04/2024 10:00 AM EDT Office Visit Podiatry [facility] [address] [facility] [address] Carola Arias DPM [address] [place] [address] 05/13/2024 8:45 AM EDT Office Visit Hematology/Oncology [facility] [address] [facility] [place] [phone] Neal [facility] [address] [facility] [address] 06/09/2024 10:00 AM EDT Office Visit Pulmonary Medicine, [facility] [address] [facility] [place] [address] Stanley [facility] [address] [facility] [address] 08/17/2024 10:30 AM EDT Imaging Vascular Lab, [facility] II 2nd Floor, [place] [address] [facility] [place] [address] 08/26/2024 11:30 AM EDT Office Visit Vascular Surgery, [address] [place] [address] Jaren Luo MD [address] [facility] [place] [address] 08/31/2024 11:40 AM EDT Office Visit [facility] Disorders Ctr [facility] [address] [facility] [phone] Quita Mooney DO [address] [facility] [place] [address] 10/29/2024 11:00 AM EST Office Visit Rheumatology [facility] [address] [place] [address] Markos Alberts MD [email or web address] [place] [address] Health Maintenance Due Date Last Done Comments [...] 08/01/2023, 06/0 06/2022, 02/01/2022 Colonoscopy 10/23/2024 10/23/2023, 04/25, 05/14/2013, Additional history exists Colorectal Cancer Screening 10/23/2024 GFR 12/13/2024 12/13/2023, 09/05/2023, 02/07/2023, Additional history exists O2 ASSESSMENT COMPLETED [...] Not on filedocumented as of this encounter Care Teams College [employer] Faculty Member Relationship Specialty Start Date End Date Isidra Woody MD [address] [place] [address] PCP - General Family Medicine 06/27/18 documented as of this encounter
--- OUTSIDE RECORDS SUMMARY | 2024-04-18 04:25 | External Medical Summary | Summary of Care ---
Author Name Unknown Organization [facility] Address [address] [place] [address] Phone [phone] Care Team Providers Care Powder Worker Name Role Phone Cristopher Woody MD Primary Care Provider [phone] Reason for Visit * Reason Onset Date Comments Advice 04/13/2024 Encounter Details Date Type Department Care Team (Late st Contact Info) Description 04/13/2024 Telephone [facility] [address] [place] [address] Cristopher Woody MD [address] [place] [address] Advice Allergies Active Allergy Reactions Criticality Noted Date Comments Amoxicillin Other (Please comment) 09/25/1999 Feels like she is "walkin on air" Prednisone High 05/30/2020 Confusion Tramadol 09/13/2011 Pt reports that she had a reaction of excessive sweating & extreme dizziness documented as of this encounter (statuses as of 04/14/2024) Medications Medication Sig Dispensed Refills Start Date End Date Status ASPIRIN EC 81 MG PO TBECIndications:HTN, goal below 140/90,Tobacco use disorder,Pain in limb,Obesity, BMI not known 1 TABLET DAILY 30 Tab 11 07/11/2012 Active triamcinolone acetonide (ARISTOCORT) 0.1 % creamIndications: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 (leg) 80 g 5 05/30/2020 Active Additional Information Patient not taking.Reported on 08/27/2023 Nebulizer Device J44.9 1 Each 01/25/2021 Active Nebulizer/Tubing/Jacqueline thpiece Kit J44.9 1 Kit 01/25/2021 Active oxygen IN GAS 2LPM bled through cpap during hours of sleep 1 Each 09/29/2021 Active hydrOXYzine HCl 25 MG Oral TabletIndications:Ne oplasm of uncertain behavior of skin TAKE ONE TABLET BY MOUTH 3 TIMES A DAY NEEDED ITCHING 40 Tablet 3 01/10/2022 Active Additional Information Patient not taking.Reported on 02/26/2024 Spironolactone 25 MG Oral Tablet (Aldactone)Indicatio ns:HTN, goal below 140/90 TAKE 1/2 TABLET BY MOUTH DAILY. 16 Tablet 11 05/23/2022 Active Additional Information Patient not taking.Reported on 02/26/2024 Ipratropium Gower 0.03 % Nasal Solution (Atrovent) Administer into nostril 2 Sprays 3 times a day as needed (as needed for runny or stuffy nose). 30 mL 6 08/15/2022 Active CPAP every night at bedtime . Active Furosemide 40 MG Oral Tablet (Lasix) TAKE 1 TABLET BY MOUTH DAILY PLUS EXTRA 1/2 TABLET 2 DAYS PER WEEK 40 Tablet 5 10/15/2022 Active Additional Information Patient not taking.Reported on 02/26/2024 Prochlorperazine Maleate 10 MG Oral Tablet (Compazine)Indicatio ns:SCC (squamous cell carcinoma of lung), right (HCC) Take 1 Tablet by mouth every 6 hours as needed for Nausea. 30 Tablet 2 12/12/2022 Active Additional Information Patient not taking.Reported on 08/27/2023 Dexamethasone 4 MG Oral Tablet (Decadron)Indication s:SCC (squamous cell carcinoma of lung), right (HCC) Take 3 tablets the night before and 3 tablets the morning of each chemotherapy appointment 36 Tablet 01/25/2023 Active Additional Information Patient not taking.Reported on 08/27/2023 Folic Acid 1 MG Oral TabletIndications:Rh eumatoid arthritis involving multiple sites with positive rheumatoid factor (HCC) TAKE ONE TABLET BY MOUTH DAILY 90 Tablet 3 05/27/2023 Active Gabapentin 300 MG Oral Capsule (Neurontin) Take 1 Capsule by mouth at bedtime. 30 Capsule 11 06/26/2023 Active amLODIPine Besylate 2.5 MG Oral Tablet (Norvasc) TAKE ONE TABLET BY MOUTH EVERY MORNING 90 Tablet 3 08/19/2023 Active Flonase Sensimist 27.5 MCG/SPRAY Nasal Suspension (Fluticasone Furoate) Administer 2 Sprays into nostril in the morning. 9.1 mL 12 08/22/2023 Active Additional Information Patient not taking.Reported on 02/26/2024 Ipratropium Gower 0.03 % Nasal Solution (Atrovent) Administer 2 Sprays into nostril in the morning and 2 Sprays at noon and 2 Sprays before bedtime. 30 mL 6 08/22/2023 Active Hydroxychloroquine Sulfate 200 MG Oral Tablet (Plaquenil) TAKE 2 TABLETS BY MOUTH AT BEDTIME 180 Tablet 3 11/04/2023 Active Albuterol Sulfate (2.5 MG/3ML) 0.083% Inhalation Nebulization Solution (Proventil)Indicatio ns:COPD, group B, by GOLD 2017 classification ([facility]) 1 VIAL IN NEBULIZER EVERY 4-6 HOURS NEEDED WHEEZING OR SHORT OF BREATH. Dx J44.9 360 mL 5 11/11/2023 Active Methotrexate Sodium 2.5 MG Oral TabletIndications:Rh eumatoid arthritis involving multiple sites with positive rheumatoid factor ([facility]),Encounter for long-term (current) use of medications TAKE 8 TABLETS BY MOUTH ONE TIME PER WEEK 96 Tablet 1 12/24/2023 Active Carvedilol 12.5 MG Oral Tablet (Coreg)Indications:H TN, goal below 140/90,Tobacco use disorder,Pain in limb TAKE ONE TABLET BY MOUTH 2 TIMES A DAY 180 Tablet 2 12/21/2023 Active Terbinafine HCl 1 % External Cream (LamISIL AT ATHLETE'S FOOT) APPLY 1 G TOPICALLY TO AFFECTED AREA IN THE MORNING AND 1 G BEFORE BEDTIME. TO AFFECTED AREA.. 45 g 3 12/23/2023 Active Lisinopril 40 MG Oral Tablet TAKE 1/2 TABLET BY MOUTH TWICE A DAY 90 Tablet 1 01/01/2024 Active Bevespi Aerosphere 9-4.8 MCG/ACT Inhalation Aerosol Inhale 2 Puffs by mouth in the morning and 2 Puffs before bedtime. 10.7 g 3 01/10/2024 Active Additional Information Patient not taking.Reported on 02/26/2024 methylPREDNISolone 4 MG Oral Tablet Therapy Pack (Medrol Dosepack) follow package directions 21 Tablet 2 01/31/2024 Active Additional Information Patient not taking.Reported on 02/26/2024 traZODone HCl 50 MG Oral Tablet (Desyrel)Indications :Persistent insomnia TAKE 1 TO 3 TABLETS BY MOUTH AT BEDTIME 270 Tablet 1 02/19/2024 Active Zoster Vac Recomb Adjuvanted 50 MCG/0.5ML Intramuscular Suspension Reconstituted (Shingrix)Indication s:Immunization due Inject 0.5 mL into a large muscle now and repeat dose in 60 to 180 days 1 Each 1 02/19/2024 Active Additional Information Patient not taking.Reported on 02/26/2024 Escitalopram Oxalate 10 MG Oral Tablet (Lexapro)Indications :Current mild episode of major depressive disorder without prior episode (HCC) TAKE 3 TABLETS BY MOUTH IN THE MORNING 270 Tablet 3 03/05/2024 Active documented as of this encounter (statuses as [...] a aero chamber. Test performed by Dania MOBILE GAME ENGINEER CPFT Primary osteoarthritis of both knees 09/30/2018 [...] a aero chamber. Test performed by Dania MOBILE GAME ENGINEER CPFT Plantar wart of left foot 12/07/2016 Inflammatory polyarthritis 08/22/2016 0 06/18/2017 Serologic abnormality 08/22/20162016 Body mass index 39.0-39.9, adult 08/09/2016 08/13/2017 Overview: bmi= 39.18 08/09/16 Tobacco use disorder 04/13/2016 017 Head injury 04/04/2016 08/13/2017 Contusion of face 04/04/2016 08/13/2017 Body mass index 36.0-36.9, adult 08/05/2015 08/13/2017 Overview: bmi= 37.30 9/11/15 Hypokalemia 08/05/2015 02/06/2016 History of tobacco use [...] mRNA, LNP-s, No Pre serve, 2-Dose Series (Dormzy) 03/23/2021,03/02/2021 H1N1 2009 Influenza, IM 01/26/2010 PPD 03/23/2013 Pneumococcal Conjugate Vacc, 13 Valent (Prevnar) 08/12/2019 Pneumococcal Conjugate Vacci ne, 20-valent ([id number]) 02/19/2024 Pneumococcal Polysaccharide PPV23 (Pneumovax) 09/25/2016,01/26/2010 Seasonal [...] encounter Miscellaneous Notes * Telephone Encounter - Terese Bhatt OSA - 04/14/2024 9:12 AM EDT LMOM to schedule. If nothing in [place], you can schedule in surrounding locations. 04/14/2024 * Telephone Encounter - Myrna Franco OSA - 04/13/2024 1:01 PM EDT No Appointments Available Patient declined appointments?: Yes What Visit Type is needed? Acute If Acute Visit Type is needed, were surrounding clinics offered to patient (Yes/No)? No, explain declined Was patient offered appointments with other available providers (Yes/No)? No, explain nothing available See Call Details? (Yes or No): Yes documented in this encounter Plan of Treatment Upcoming Encounters Date Type Department Care Team (Late st Contact Info) Description 05/04/2024 10:00 AM EDT Office Visit Podiatry [facility] [address] [facility] [place] [address] Carola Arias DPDebbie [address] [place] [address] 05/13/2024 8:45 AM EDT Office Visit Hematology/Oncology [facility] [address] [facility] [phone] Neal Schneider MD [address] [facility] [address] 06/09/2024 10:00 AM EDT Office Visit Pulmonary Medicine, [facility] 132 [facility] [place] [address] Stanley [facility] [address] [facility] [address] 08/17/2024 10:30 AM EDT Imaging Vascular Lab, [facility] II 2nd Floor, [place] [address] [place] [address] 08/26/2024 11:30 AM EDT Office Visit Vascular Surgery, [address] [place] [address] J[facility] Luo MD [address] [facility] [place] [address] 08/31/2024 11:40 AM EDT Office Visit Sleep Disorders Ctr [facility] [address] [place] [phone] Mooney Quita Zepeda, [address] [place] [address] 10/29/2024 11:00 AM EST Office Visit Rheumatology [facility] [address] [place] [address] Markos Alberts MD [address] [place] [address] Health Maintenance Due Date Last Done Comments [...] 12/21/2010, Additional history exists HbA1c 08/01/2024 08/01/2023, 060 06/2022, 02/01/2022 Colonoscopy 10/23/2024 10/23/2023, 04/25, 05/14/2013, [...] filedocumented as of this encounter Care Teams Powder Worker Relationship Specialty Start Date End Date Cristopher Wooyd MD [address] [place] [address] PCP - General Family Medicine 06/27/18 documented as of this encounter
--- OUTSIDE RECORDS SUMMARY | 2024-04-18 04:25 | External Medical Summary | Summary of Care ---
Author Name Unknown Organization [facility] Address [address] [place] [address] Phone [phone] Care Team Providers Care Jack Frame Tender Name Role Phone Cristopher Woody MD Primary Care Provider [phone] Reason for Visit * Reason Onset Date Comments Medication Question 01/03/2024 Encounter Details Date Type Department Care Team (Late st Contact Info) Description 01/03/2024 Telephone [facility] [address] [place] [address] Cristopher Woody MD [address] [place] [address] Medication Question Allergies Active Allergy Reactions Criticality Noted Date Comments Amoxicillin Other (Please comment) 09/25/1999 Feels like she is "walkin on air" Prednisone High 05/30/2020 Confusion Tramadol 09/13/2011 Pt reports that she had a reaction of excessive sweating & extreme dizziness documented as of this encounter (statuses as of 04/03/2024) Medications Medication Sig Dispensed Refills Start Date [...] 08/27/2023 Nebulizer Device J44.9 1 Each 0 01/25/2021 Active Nebulizer/Tubing/Jacqueline thpiece Kit J44.9 1 Kit 0 01/25/2021 Active oxygen IN GAS 2LPM bled through cpap during hours of sleep 1 Each 0 09/29/2021 Active hydrOXYzine HCl 25 MG Oral [...] Information Patient not taking.Reported on 02/26/2024 Ipratropium Alvin 0.03 % Nasal Solution (Atrovent) Administer into [...] of each chemotherapy appointment 36 Tablet 0 01/25/2023 Active Additional Information Patient not taking.Reported [...] Information Patient not taking.Reported on 02/26/2024 Ipratropium Alvin 0.03 % Nasal Solution (Atrovent) Administer 2 Sprays into nostril in the morning and 2 Sprays at noon and 2 Sprays before bedtime. 30 mL 6 08/22/2023 Active Atorvastatin Calcium 40 MG Oral Tablet (Lipitor) TAKE 1 TABLET BY MOUTH EVERY DAY IN THE MORNING 90 Tablet 1 10/08/2023 Active Hydroxychloroquine Sulfate 200 MG Oral Tablet (Plaquenil) TAKE 2 TABLETS BY MOUTH AT BEDTIME 180 Tablet 3 11/04/2023 Active Albuterol Sulfate (2.5 MG/3ML) 0.083% Inhalation Nebulization Solution (Proventil)Indicatio ns:COPD, group B, by GOLD 2017 classification ([facility]) 1 VIAL IN NEBULIZER EVERY 4-6 HOURS NEEDED WHEEZING OR SHORT OF BREATH. 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 90 Each 3 01/01/2024 5 Active documented as of this encounter (statuses as of 04/03/2024) Active Problems Problem Noted Date Diagnosed Date [...] a aero chamber. Test performed by Dania LEASE BUYER CPFT Primary osteoarthritis of both knees 09/30/2018 [...] as of this encounter (statuses as of 04/03/2024) Resolved Problems Problem Noted Date Diagnosed Date [...] a aero chamber. Test performed by Dania LEASE BUYER CPFT Plantar wart of left foot 12/07/2016 [...] as of this encounter (statuses as of 04/03/2024) Immunizations Name Administration Dates Next Due COVID-19 [...] encounter Miscellaneous Notes * Telephone Encounter - Lilian Serra CPhT - 01/03/2024 12:35 PM EST Patient calling to request refill for Bevespi Aerosphere 9-4.8 MCG/ACT. [facility] and [facility] request[facility]ative Anoro. Thank you, Lilian Serra, Delivery Consultant [facility]) 01/03/2024, 12:42 PM documented in this encounter Plan of Treatment Upcoming Encounters Date Type Department Care Team (Late st Contact Info) Description 04/07/2024 9:45 AM EDT Imaging Radiology [facility] [address] [facility] [address] [facility] [place] [address] 05/04/2024 10:00 AM EDT Office Visit Podiatry [facility] [address] [facility] [place] [address] Carola Arias, JAVIER [address] [place] [address] [place] [address] 05/13/2024 8:45 AM EDT Office Visit Hematology/Oncology [facility] [place] [phone] Neal Schneider MD [address] [facility] [place] [address] 06/09/2024 10:00 AM EDT Office Visit Pulmonary Medicine, [facility] 132 [facility] [place] [address] Stanley Norton MD [address] [place] [address] 08/17/2024 11:00 AM EDT [facility] [address] [facility] [place] [address] 08/26/2024 11:30 AM EDT Office Visit Vascular Surgery, [facility] 132 [facility] [place] [address] Jaren Luo MD [address] [place] [address] 08/31/2024 11:40 AM EDT Office Visit Sleep Disorders Ctr [facility] 132 [facility] [place] [phone] Quita Mooney DO [address] [facility] [place] [address] 10/29/2024 11:00 AM EST Office Visit Rheumatology [place] [address] [facility] [place], [place] [address] Markos Alberts MD [address] [facility] [place] [address] Health Maintenance Due Date Last Done Comments [...] 08/01/2023, 06/0 06/2022, 02/01/2022 Colonoscopy 10/23/2024 10/23/2023, 061 04/2023, 05/14/2013, Additional history exists Colorectal Cancer [...] filedocumented as of this encounter Care Teams Jack Frame Tender Relationship Specialty Start Date End Date Cristopher Woody MD [address] [place] [address] PCP - General Family Medicine 06/27/18 documented as of this encounter
[2024-04-18 06:31] LABS: Hematocrit (blood only) 35.7 % (37.0-47.0); Mean Corpuscular Hemoglobin 30.9 pg (25.0-34.0); Mean Corpuscular Hgb Conc 33.6 g/dL (32.0-36.0); Mean Platelet Volume 11.2 fL (9.4-12.4); Platelet Count 232 K/uL (130-400); RDW Coefficient of Variation 15.9 % (11.5-14.5); Red Blood Count 3.88 M/uL (4.20-5.40); White Blood Count 19.11 K/ul (4.8-10.8)
--- OUTSIDE RECORDS SUMMARY | 2024-04-18 06:32 | External Medical Summary | Summary of Care ---
Author Name Unknown Organization [facility] Address [address] [place] [address] Phone [phone] Care Team Providers Care Rf Technician Name Role Phone Cristopher Woody MD Primary Care Provider [phone] Reason for Visit * Reason Onset Date Comments Advice 04/13/2024 Encounter Details Date Type Department Care Team (Late st Contact Info) Description 04/13/2024 Telephone [facility] [address] [place] [address] Cristopher Woody MD [address] [place] [address] Advice Allergies Active Allergy Reactions Criticality Noted Date Comments Amoxicillin Other (Please comment) 09/25/1999 Feels like she is "walkin on air" Prednisone High 05/30/2020 Confusion Tramadol 09/13/2011 Pt reports that she had a reaction of excessive sweating & extreme dizziness documented as of this encounter (statuses as of 04/16/2024) Medications Medication Sig Dispensed Refills Start Date [...] Information Patient not taking.Reported on 02/26/2024 Ipratropium Butler 0.03 % Nasal Solution (Atrovent) Administer into [...] Information Patient not taking.Reported on 02/26/2024 Ipratropium Butler 0.03 % Nasal Solution (Atrovent) Administer 2 [...] group B, by GOLD 2017 classification ([facility]) 1 VIAL IN NEBULIZER EVERY 4-6 HOURS NEEDED WHEEZING OR SHORT OF BREATH. Dx J44.9 360 mL 5 11/11/2023 Active Methotrexate Sodium 2.5 MG Oral TabletIndications:Rh eumatoid arthritis involving multiple sites with positive rheumatoid factor ([facility]),Encounter for long-term (current) use of medications TAKE [...] as of this encounter (statuses as of 04/16/2024) Active Problems Problem Noted Date Diagnosed Date [...] a aero chamber. Test performed by Dania NUCLEAR TECHNOLOGIST CPFT Primary osteoarthritis of both knees 09/30/2018 [...] as of this encounter (statuses as of 04/16/2024) Resolved Problems Problem Noted Date Diagnosed Date [...] a aero chamber. Test performed by Dania NUCLEAR TECHNOLOGIST CPFT Plantar wart of left foot 12/07/2016 [...] as of this encounter (statuses as of 04/16/2024) Immunizations Name Administration Dates Next Due COVID-19 mRNA, LNP-s, No Pre serve, 2-Dose Series (Football Meister) 03/23/2021,03/02/2021 H1N1 2009 Influenza, IM 01/26/2010 PPD 03/23/2013,07/10/2005 Pneumococcal Conjugate Vacc, 13 Valent (Prevnar) 08/12/2019 Pneumococcal Conjugate Vacci ne, 20-valent ([id number]) 02/19/2024 Pneumococcal Polysaccharide PPV23 (Pneumovax) 09/25/2016,01/26/2010 Seasonal [...] Miscellaneous Notes * Telephone Encounter - Terese Bhatt, AMRIK - 04/16/2024 1:03 PM EDT Called ed let her know that we do not have any appointments in any surrounding locations. She said then why don't I go to the ER? I said that is your choice or you can go to an urgent care. She hung up on me. 04/16/2024 * Telephone Encounter - Terese Bhatt OSA - 04/14/2024 9:12 AM EDT LMOM to schedule. If nothing in [place], you can schedule in surrounding locations. 04/14/2024 [...] 05/04/2024 10:00 AM EDT Office Visit Podiatry [facility] [address] [place] [address] Carola Arias DPDebbie [address] [facility] [place] [address] 05/13/2024 8:45 AM EDT Office Visit Hematology/Oncology [facility] [address] [facility] [place] [phone] Neal Schneider MD [address] [place] [address] 06/09/2024 10:00 AM EDT Office Visit Pulmonary Medicine, [facility] 132 [facility] [place] [address] Stanley Norton MD [address] [facility] [address] 08/17/2024 10:30 AM EDT [facility] 132 [place] [address] 08/26/2024 11:30 AM EDT Office Visit Vascular Surgery, [facility] [address] [place] [address] Jaren Luo MD [address] [place] [address] 08/31/2024 11:40 AM EDT Office Visit Sleep Disorders Ctr [facility] 132 [place] [phone] Quita Mooney DO 132 [facility] [place] [address] 10/29/2024 11:00 AM EST Office Visit Rheumatology [place] [phone] [facility] [place] [address] Markos Alberts MD [address] [place] [address] Health Maintenance Due Date Last Done Comments [...] filedocumented as of this encounter Care Teams Rf Technician Relationship Specialty Start Date End Date Cristopher Woody MD [address] [place] [address] PCP - General Family Medicine 06/27/18 documented as of this encounter
[2024-04-18 06:49] LABS: Anion Gap 5 (3-11); BUN Creatinine Ratio 37.8 (10-20); Blood Urea Nitrogen 17 mg/dl (6-23); Calcium 8.9 mg/dl (8.6-10.3); Carbon Dioxide 25 mmol/L (21-32); Chloride 96 mmol/L (98-107); Creatinine Clr Calc Pharmacy 118.8 ml/min; Est GFR (African American) 121.9 ml/min; Est GFR (Non-African American) 105.1 ml/min; Glucose 166 mg/dl (70-99(Fasting)); Magnesium 1.9 mg/dl (1.7-2.4); Phosphorus 3.4 mg/dl (2.5-4.9); Sodium 126 mmol/L (136-145)
[2024-04-19] MEDS: ACETAMINOPHEN 325 MG TAB PO PRN (03:20)
--- NOTE | 2024-04-19 04:40 | Hospitalist Progress Note ---
Date of Service April 18, 2024 Assessment & Plan (1) COPD (chronic obstructive pulmonary disease): (2) AMRIK (obstructive sleep apnea): (3) Lung cancer: (4) Asthma: (5) (HFpEF) heart failure with preserved ejection fraction: (6) Coronary artery disease: (7) Rheumatoid arthritis: (8) Hypertension: (9) Dyslipidemia: Plan: Acute hypoxic respiratory failure COPD exacerbation Asthma AMRIK on Cpap Chronic supplemental O2 requirement Hx of Right Squamous Cell Carcinoma in Nov 2021, s/p chemotherapy and radiation completed in 01/2023 - s/p solumedrol 125 mg IV and doxycycline IV in the ER, continue solumedrol 40 mg IV BID, cont doxy for now - CXR with mild nonspecific bibasilar opacities possibly representing pna - Pulm toilet: flutter, incentive spirometry, mucinex, duonebs, cough syrup prn - No leukocytosis, afebrile on admission - follow BCx x 2 - requiring 4 L via NC, typically is on 2 L baseline, wears CPAP HS with 2 L bled in - Pt follows with Dr. Schneider previously for chemo/rads - pt states she is in remission. Was supposed to have PET CT few weeks ago but was unable to lay down flat due to shortness of breath. - Pt stopped smoking 5 years ago - Aspiration precautions - Hold trazadone - pt reports feeling better today- she has a significant cough, pt reports it's chronic and does not have a sputum production - on suppl. O2, down to 2L - encouraged flutter valve, IS CHF, chronic diastolic CAD HTN HLD - Last echo reviewed in outpatient epic from Nov 2023 showing diastolic dysfunction, mitral regurg and EF of 55-59% - Lasix and spironolactone on home med list but pts states has NOT been taking since on chemo. - CXR showing poss. pulmonary vasculature as above - received one dose lasix 20 mg IV on admission - Obtained echo-there is mild concentric LVH. LV systolic function is normal. LVEF 55 to 60%. LV wall motion is normal. LA is severely dilated. Grade 1 diastolic dysfunction, abnormal relaxation pattern. Aortic valve sclerosis moderate, without significant aortic valvular stenosis. Compared to study in November 2023, there has been no significant interval change. - Cont amlodipine, aspirin, coreg, lisinopril Rheumatoid Arthritis - Continue methotrexate once weekly on Saturday and plaquenil 400 mg HS , gabapentin, no steroids chronically - Follows with rheum as outpt DVT ppx: teds, scds CODE: FULL Dispo: From home, likely to remain in the hospital x 1-2 days Admission and Anticipated Discharge Date Admission Date: April 16, 2024 Subjective Pt seen in follow up of COPD exacerbation , hx of lung ca Currently sitting up in bed in NAD, on suppl. O2, reports feeling better and breathing easier she has chronic cough, denies any significant sputum production denies fever, chills, chest pain, shortness of breath. denies abd. pain, n/v + lack of smell and taste Pt is inquiring about going home WBC elevated and sodium down today Review of Systems Review of Systems: All systems reviewed & are unremarkable except as noted in Subjective Physical Exam Physical Exam: General Appearance: Obese F in NAD, on suppl. O2 Head: normocephalic, Atraumatic Eyes: normal inspection, EOMI Neck: supple Respiratory/Chest: + diffuse rhonchi, no resp. distress Cardiovascular: S1, S2, No murmur Abdomen/GI: Soft, Non tender, Bowel sounds present Extremities/Musculoskeletal: normal inspection, trace pedal edema Neurologic/Psych: AAOX3, speech fluent, answers appropriately, moves extremities Skin: normal color, warm Results & Data Results & Data Vital Signs (Past 12 Hours) Vital Signs Temp Pulse Pulse Resp BP Pulse Ox O2 Del Method 04/18/24 20:27 Room Air 04/18/24 19:51 53 L 18 93 Nasal Cannula 04/18/24 19:37 36.7 C 61 19 157/91 H 90 Room Air O2 Flow Rate 04/18/24 20:27 04/18/24 19:51 1 04/18/24 19:37 Laboratory Results 04/18/24 04/18/24 Range/Units 07:33 05:58 WBC 19.11 H (4.8-10.8) K/ul RBC 3.88 L (4.20-5.40) M/uL Hgb 12.0 (12.0-16.0) g/dl Hct 35.7 L (37.0-47.0) % MCV 92.0 (80.0-100.0) fL MCH 30.9 (25.0-34.0) pg MCHC 33.6 (32.0-36.0) g/dL RDW Std Deviation 52.0 H (36.4-46.3) fL RDW Coeff of Lucretia 15.9 H (11.5-14.5) % Plt Count 232 (130-400) K/uL MPV 11.2 (9.4-12.4) fL Sodium 126 L (136-145) mmol/L Potassium 4.5 TNP Chloride 96 L (98-107) mmol/L Carbon Dioxide 25 (21-32) mmol/L Anion Gap 5 (3-11) BUN 17 (6-23) mg/dl Creatinine 0.45 L (0.6-1.2) mg/dl Est Cr Clr Drug Dosing 118.8 ml/min Est GFR ( Amer) 121.9 ml/min Est GFR (Non-Af Amer) 105.1 ml/min BUN/Creatinine Ratio 37.8 H (10-20) Glucose 166 H (70-99(Fasting)) mg/dl Calcium 8.9 (8.6-10.3) mg/dl Phosphorus 3.4 (2.5-4.9) mg/dl Magnesium 1.9 (1.7-2.4) mg/dl Medications Administered Current Inpatient Medications Acetaminophen (Acetaminophen 325 Mg Tab) 650 mg PO Q4H PRN PRN Reason: Pain or Fever Stop: 05/16/24 22:49 Last Admin: 04/19/24 03:20 Dose: 650 mg Albuterol (Albut/Ipratrop 3mg/0.5mg Neb 3 Ml Vial) [facility] Protocol Stop: 05/16/24 22:49 Last Admin: 04/18/24 19:50 Dose: 3 ml Amlodipine Besylate (Amlodipine Besylate 5 Mg Tab) 2.5 mg PO [facility] Stop: 05/17/24 08:59 Last Admin: 04/18/24 08:13 Dose: 2.5 mg Aspirin (Aspirin 81 Mg Ectab) 81 mg PO [facility] Stop: 05/17/24 08:59 Last Admin: 04/18/24 08:14 Dose: 81 mg Atorvastatin Calcium (Atorvastatin 40 Mg Tab) 40 mg PO [facility] Stop: 05/17/24 08:59 Last Admin: 04/18/24 08:14 Dose: 40 mg Carvedilol (Carvedilol 12.5 Mg Tab) 12.5 mg PO BIDM [facility] Stop: 05/16/24 22:49 Last Admin: 04/18/24 17:50 Dose: 12.5 mg Doxycycline Hyclate (Doxycycline Hyclate 100 Mg Cap) 100 mg PO BID [facility] Stop: 04/24/24 08:59 Last Admin: 04/18/24 20:21 Dose: 100 mg Enoxaparin Sodium (Enoxaparin Inj 40 Mg/0.4 Ml Syr) 40 mg SQ QAM [facility] Stop: 05/16/24 22:49 Last Admin: 04/18/24 08:14 Dose: 40 mg Escitalopram Oxalate (Escitalopram Oxalate 10 Mg Tab) [facility] Stop: 05/17/24 08:59 Last Admin: 04/18/24 08:14 Dose: 30 mg Folic Acid (Folic Acid 1 Mg Tab) [facility] Stop: 05/17/24 08:59 Last Admin: 04/18/24 08:14 Dose: 1 mg Gabapentin (Gabapentin 300 Mg Cap) 300 mg PO [facility] Stop: 05/16/24 22:49 Last Admin: 04/18/24 20:21 Dose: 300 mg Guaifenesin (Guaifenesin 600 Mg Tabcr) 600 mg PO Q12 [facility] Stop: 05/16/24 22:49 Last Admin: 04/18/24 20:21 Dose: 600 mg Guaifenesin/Dextromethorphan (Guaifenesin/Dextrom Syrup 100mg/10mg 5ml Udc) 5 ml PO Q6H PRN PRN Reason: Cough Stop: 05/16/24 22:49 Hydroxychloroquine Sulfate (Hydroxychloroquine Sulfate 200 Mg Tab) 400 mg PO [facility] Stop: 05/16/24 22:49 Last Admin: 04/18/24 20:21 Dose: 400 mg Methylprednisolone 40 mg/ (Syringe) 0.64 mls @ 1.5 mls/min IV Q12H [facility] Stop: 05/16/24 22:49 Last Admin: 04/18/24 17:49 Dose: 1.5 mls/min Lisinopril (Lisinopril 20 Mg Tab) 20 mg PO BIDM [facility] Stop: 05/16/24 22:49 Last Admin: 04/18/24 17:50 Dose: 20 mg Methotrexate (Methotrexate Sodium 2.5 Mg Tab) 10 mg PO Mo@0900,2100 [facility] Stop: 05/20/24 08:59 Polyethylene Glycol (Polyethylene (Miralax) 17 Gm Pack) 17 gm PO DAILY PRN PRN Reason: Constipation Stop: 05/16/24 22:49 Umeclidinium/Vilanterol (Umeclidinium/Vilanterol 62.5/25mcg 7 Puffs/Inhaler) 1 puffs INH QAM [facility] Stop: 05/17/24 08:59 Last Admin: 04/18/24 08:14 Dose: 1 puffs (3) Lung cancer Laterality: right Lung location: upper lobe of lung Qualified Code(s): C34.11 - Malignant neoplasm of upper lobe, right bronchus or lung
[2024-04-19 06:36] LABS: Hematocrit (blood only) 38.5 % (37.0-47.0); Hemoglobin 12.9 g/dl (12.0-16.0); Mean Corpuscular Hemoglobin 30.4 pg (25.0-34.0); Mean Corpuscular Hgb Conc 33.5 g/dL (32.0-36.0); Mean Corpuscular Volume 90.8 fL (80.0-100.0); Mean Platelet Volume 10.8 fL (9.4-12.4); Platelet Count 205 K/uL (130-400); RDW Coefficient of Variation 15.9 % (11.5-14.5); RDW Standard Deviation 51.3 fL (36.4-46.3); Red Blood Count 4.24 M/uL (4.20-5.40); White Blood Count 14.77 K/ul (4.8-10.8)
[2024-04-19 07:02] LABS: BUN Creatinine Ratio 36.6 (10-20); Calcium 8.8 mg/dl (8.6-10.3); Creatinine Clr Calc Pharmacy 130.5 ml/min; Est GFR (African American) 125.7 ml/min; Est GFR (Non-African American) 108.4 ml/min; Magnesium 1.8 mg/dl (1.7-2.4); Potassium 4.3 mmol/L (3.5-5.1)
[2024-04-19] MEDS: MAGNESIUM SULFATE / D5W 1 GM/100 ML BAG IV ONE (10:37)
--- NOTE | 2024-04-19 13:54 | Discharge Summary ---
Date of Service April 19, 2024 Admission HPI Per Admitting Provider This is a 64 yo F with PMHx of SCC of right lung s/p chemo/radiation treatment completed in 01/2023. She has followed with Dr. Norton with pulm medicine as outpatient. Other PMHx of CHF, COPD, AMRIK on cpap HS, hx of remote tobacco use, CHF with preserved EF from April 2022, obesity and rheumatoid arthritis on methotrexate and plaquenil. 3 weeks ago she had a head cold and within 1 week lost her sense of taste and smell. Pt states last week her voice got raspy and is still hoarse. Today she had significantly worsening shortness of breath at rest, and even has difficulty speaking to me at bedside. She has been using nebulizer. At baseline wears 2 L O2. Has been coughing with mucous production which is clear/white. She has chest tightness currently. Pt feels hungry and has no abd complaints. She does have lightheadedness when she gets into a coughing spell. Pt denies lightheadedness or dizziness at baseline but does feel it occasionally when she goes from sitting to standing. Pt lives at home alone. Her best friend Jo Anderson may be reached for updates at [phone]. Admission Exam Per Admitting Provider General Appearance: Obese, mild respiratory distress Head: normocephalic, Atraumatic Eyes: normal inspection, EOMI Neck: supple, Trachea midline Respiratory/Chest: Decreased breath sounds, scattered crackles, wheezes and rhonchi, tachypneic Cardiovascular: S1, S2, No murmur Abdomen/GI:Soft, Non tender, Bowel sounds present Extremities/Musculoskeletal:normal inspection, trace pedal edema Neurologic/Psych:AAOX3, grossly no focal neurological deficits Skin: normal color, warm Principal Diagnosis COPD exacerbation Acute hypoxic resp. failure Discharge Exam General Appearance: Obese F in NAD, on suppl. O2 Head: normocephalic, Atraumatic Eyes: normal inspection, EOMI Neck: supple Respiratory/Chest: + diffuse rhonchi, no resp. distress Cardiovascular: S1, S2, No murmur Abdomen/GI: Soft, Non tender, Bowel sounds present Extremities/Musculoskeletal: normal inspection, trace pedal edema Neurologic/Psych: AAOX3, speech fluent, answers appropriately, moves extremities Skin: normal color, warm Discharge Data Allergies Allergy/AdvReac Type Severity Reaction Status Date / Time amoxicillin Allergy Unknown SHORTNESS Verified 04/02/24 05:47 OF BREATH, DIZZINESS Penicillins Allergy Unknown SHORTNESS Verified 04/02/24 05:47 OF BREATH, DIZZINESS prednisone Allergy Unknown "LOSE Verified 04/02/24 05:47 BRAIN FUNCTION" tramadol AdvReac Unknown SWEATY, Verified 04/02/24 05:47 CLAMMY Consultations 04/16/24 18:36 ED Decision to Admit Stat Hospital Course (1) COPD (chronic obstructive pulmonary disease): (2) AMRIK (obstructive sleep apnea): (3) Lung cancer: (4) Asthma: (5) (HFpEF) heart failure with preserved ejection fraction: (6) Coronary artery disease: (7) Rheumatoid arthritis: (8) Hypertension: (9) Dyslipidemia: Acute hypoxic respiratory failure COPD exacerbation Asthma AMRIK on Cpap Chronic supplemental O2 requirement Hx of Right Squamous Cell Carcinoma in Nov 2021, s/p chemotherapy and radiation completed in 01/2023 - s/p solumedrol 125 mg IV and doxycycline IV in the ER, continue solumedrol 40 mg IV BID, cont doxy for now - CXR with mild nonspecific bibasilar opacities possibly representing pna - Pulm toilet: flutter, incentive spirometry, mucinex, duonebs, cough syrup prn - No leukocytosis, afebrile on admission - follow BCx x 2 - requiring 4 L via NC, typically is on 2 L baseline, wears CPAP HS with 2 L bled in - Pt follows with Dr. Schneider previously for chemo/rads - pt states she is in r emission. Was supposed to have PET CT few weeks ago but was unable to lay down flat due to shortness of breath. - Pt stopped smoking 5 years ago - Aspiration precautions - Hold trazadone - pt reports feeling better today- she has a significant cough, pt reports it's chronic and does not have a sputum production - encouraged flutter valve, IS - on suppl. O2, down to 2L -> on RA CHF, chronic diastolic CAD HTN HLD - Last echo reviewed in outpatient epic from Nov 2023 showing diastolic dysfunction, mitral regurg and EF of 55-59% - Lasix and spironolactone on home med list but pts states has NOT been taking since on chemo. - CXR showing poss. pulmonary vasculature as above - received one dose lasix 20 mg IV on admission - Obtained echo-there is mild concentric LVH. LV systolic function is normal. LVEF 55 to 60%. LV wall motion is normal. LA is severely dilated. Grade 1 diastolic dysfunction, abnormal relaxation pattern. Aortic valve sclerosis moderate, without significant aortic valvular stenosis. Compared to study in November 2023, there has been no significant interval change. - Cont amlodipine, aspirin, coreg, lisinopril Rheumatoid Arthritis - Continue methotrexate once weekly on Saturday and plaquenil 400 mg HS , gabapentin, no steroids chronically - Follows with rheum as outpt Total Time Total Time Spent Total Time Spent (In Minutes): 40 Discharge Plan Discharge Items Patient Disposition: Home - Self-Care Reason For Visit: COPD Discharge Diagnosis: COPD exacerbation Acute hypoxic resp. failure Activity: Per Instructions section Non-emergency contact: Primary Care Provider Call non-emergency contact if: you have any medication questions and your symptoms worsen Follow-up/Referrals: Cristopher Woody MD [Primary Care Provider] - Diet: Heart Healthy Addtl Attending Provider Instructions: Follow up with your primary care doctor within 1 week. Finish antibiotic treatment with doxycycline as prescribed. Take prednisone 40 mg for next 5 days. Also recommend taking guaifenesin. Continue using flutter valve, and spirometer. Pending Studies at Discharge: Yes Studies:: final blood cultx Stand-Alone Forms: My [facility] [employer], Smoking Cessation Medications and DC Order Prescriptions: New doxycycline hyclate 100 mg Capsule 100 mg PO BID 5 Days Qty: 10 0RF guaifenesin [Mucinex] 600 mg Tablet Extended Release 12hr 600 mg PO Q12 10 Days Qty: 20 0RF prednisone 20 mg tablet 40 mg PO DAILY 5 Days Qty: 10 0RF Continued ketoconazole 2 % shampoo 1 applic topical UD Patient Comments: apply to skin of leg before shower, use as body wash three times weekly until rash is gone, then once a week thereafter Rx Instructions: no record with pharmacy 1 applic topically; albuterol sulfate 2.5 mg /3 mL (0.083 %) solution for nebulization 2.5 mg inhalation Q4H PRN (Reason: sob) Patient Comments: use every 4-6 hours as needed for shortness of breath or wheezing Rx Instructions: last filled in 2021 hydroxyzine HCl 25 mg tablet 25 mg PO UD PRN (Reason: Itching) Rx Instructions: no record with pharmacy 04/16/24 25 mg po tid prn hydroxychloroquine 200 mg tablet 400 mg PO HS amlodipine 2.5 mg tablet 2.5 mg PO QAM Patient Comments: has not been taking lisinopril 40 mg Tablet 20 mg PO BID Rx Instructions: TAKES AT BREAKFAST AND DINNER albuterol sulfate 90 mcg/actuation Aerosol Powdr Breath Activated 2 inh INHALATION Q6H PRN (Reason: Shortness Of Breath Or Wheezing) atorvastatin 40 mg Tablet 40 mg PO QAM carvedilol [Coreg] 12.5 mg Tablet 12.5 mg PO BID Rx Instructions: TAKES AT BREAKFAST AND DINNER folic acid 1 mg Tablet 1 mg PO QAM trazodone 50 mg tablet 150 mg PO HS Rx Instructions: 1 to 3 tab methotrexate sodium 2.5 mg Tablet 20 mg PO WK Rx Instructions: Saturday nystatin 100,000 unit/gram powder 1 applic topical BID PRN (Reason: Rash) Rx Instructions: filledover a year ago 1 angelina top bid prn aspirin 81 mg Tablet,Delayed Release (Dr/Ec) 81 mg PO QAM Rx Instructions: otc unable to verify escitalopram oxalate 10 mg Tablet 30 mg PO QAM ibuprofen [Advil] 200 mg Tablet 600 mg PO Q6H PRN (Reason: Pain) Rx Instructions: otc unable to verify gabapentin 300 mg Capsule 300 mg PO HS ipratropium bromide 21 mcg (0.03 %) spray,non-aerosol 2 spray INTRANASAL TID Stiolto Respimat 2.5-2.5 mcg/actuation mist 2 puff INHALATION QAM Discharge Orders: Discharge Order (Routine); Ordered 04/19/24 Ordered By: Adan Saez Admission Data Admit Date/Time: 04/16/24 18:45 Attending Provider: Adan Saez Admit Provider: Live Perdomo Primary Care Provider: Cristopher Woody Other Providers: Live Perdomo
[2024-04-20] MEDS ORDERED: metHOTREXate sodium 2.5 MG TAB PO SCH (09:00)
== END 2024-04-19 15:32 | disposition home or self-care (01) | DRG 189 ==
LOC: ED 15:31 → SUATTDRO 18:45 → EDINP 18:45 → 4W 22:38